=== PATIENT | female | born 1940 | race African-American/Black ===

== ENCOUNTER 2020-01-25 05:00 | Inpatient (IN) | payer MEDICARE ==
[~2020-01-25] VITALS: Ht 172.7 cm; Wt 82.1 kg
[2020-01-25] MEDS ORDERED: [UNRECOGNIZED DRUG - OTHER] ORAL (05:22)
[2020-01-25] MEDS ORDERED: Solu-MEDROL 125mg Inj IVP ONE (05:30)
--- NOTE | 2020-01-25 05:34 | Emergency Room Report ---
History of Present Illness General Chief Complaint: Dyspnea/Respdistress Present Illness HPI 79-year-old female with history of COPD here with shortness of breath. The patient says that she has been experiencing worsening shortness of breath over the past week. She says that she has been using her albuterol inhaler with only mild relief over the past several days. 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 When paramedics arrived the patient was tripoding on the ground and had an oxygen saturation of 90% on room air. She was put on a 4 L nonrebreather mask and states she immediately felt better. Denies headaches, vision changes, fevers, chills, chest pain, palpitations, cough, back pain, abdominal pain, nausea, vomiting, diarrhea, dysuria. Allergies: Coded Allergies: No Known Allergies (Unverified , 01/25/20) COVID-19 Screening Contact w/high risk pt: No Experienced COVID-19 symptoms?: Yes COVID-19 Testing performed SUPERVISOR STATEMENT CLERKS: No Review of Systems All Other Systems: negative except mentioned in HPI Physical Exam Vital Signs Date Time Temp Pulse Resp B/P (MAP) Pulse Ox O2 Delivery O2 Flow Rate FiO2 01/25/20 05:01 97.9 105 20 183/98 (126) 99 Non-Rebreather 15.0 Sp02 EP Interpretation: reviewed, normal General Appearance: no apparent distress, alert, GCS 15, non-toxic Head: normocephalic, atraumatic Eyes: bilateral eye normal inspection, bilateral eye PERRL ENT: hearing grossly normal, normal pharynx, no angioedema, normal voice Neck: full range of motion, supple/symm/no masses Respiratory: chest non-tender, speaking full sentences, other - Mildly increased respiratory effort but normal respiratory rate. Mild expiratory wheezes in all lung marte bilaterally Cardiovascular #1: regular rate, rhythm, no edema Cardiovascular #2: 2+ carotid (R), 2+ carotid (L), 2+ radial (R), 2+ radial (L) , 2+ dorsalis pedis (R), 2+ dorsalis pedis (L) Gastrointestinal: normal bowel sounds, non tender, soft, non-distended, no guarding, no rebound Rectal: deferred Genitourinary: normal inspection, no CVA tenderness Musculoskeletal: back normal, normal range of motion, calf tenderness, gait/ station normal, non-tender Neurologic: alert, motor strength/tone normal, oriented x3, sensory intact, responsive, speech normal Psychiatric: judgement/insight normal, memory normal, mood/affect normal, no suicidal/homicidal ideation Lymphatic: no adenopathy Medical Decision Making Diagnostic Impression: Primary Impression: Dyspnea Additional Impressions: Respiratory distress COPD exacerbation CAP (community acquired pneumonia) ER Course Laboratory Tests Test 01/25/20 05:15 White Blood Count 12.5 K/UL (4.8-10.8) H Red Blood Count 5.09 M/UL (4.20-5.40) Hemoglobin 16.0 G/DL (12.0-16.0) Hematocrit 50.3 % (37.0-47.0) H Mean Corpuscular Volume 99 FL (80-99) Mean Corpuscular Hemoglobin 31.5 PG (27.0-31.0) H Mean Corpuscular Hemoglobin Concent 31.9 G/DL (32.0-36.0) L Red Cell Distribution Width 11.6 % (11.6-14.8) Platelet Count 180 K/UL (150-450) Mean Platelet Volume 7.8 FL (6.5-10.1) Neutrophils (%) (Auto) 78.5 % (45.0-75.0) H Lymphocytes (%) (Auto) 13.1 % (20.0-45.0) L Monocytes (%) (Auto) 6.7 % (1.0-10.0) Eosinophils (%) (Auto) 0.6 % (0.0-3.0) Basophils (%) (Auto) 1.0 % (0.0-2.0) Sodium Level 139 MMOL/L (136-145) Potassium Level 3.9 MMOL/L (3.5-5.1) Chloride Level 99 MMOL/L (98-107) Carbon Dioxide Level 37 MMOL/L (21-32) H Anion Gap 3 mmol/L (5-15) L Blood Urea Nitrogen 10 mg/dL (7-18) Creatinine 0.7 MG/DL (0.55-1.30) Estimated Glomerular Filtration Rate > 60 mL/min (>60) Glucose Level 159 MG/DL (74-106) H Calcium Level 9.4 MG/DL (8.5-10.1) Total Bilirubin 0.4 MG/DL (0.2-1.0) Aspartate Amino Transferase (AST) 27 U/L (15-37) Alanine Aminotransferase (ALT) 32 U/L (12-78) Alkaline Phosphatase 70 U/L (46-116) Troponin I 0.000 ng/mL (0.000-0.056) Total Protein 8.4 G/DL (6.4-8.2) H Albumin 4.2 G/DL (3.4-5.0) Globulin 4.2 g/dL Albumin/Globulin Ratio 1.0 (1.0-2.7) Microbiology Date/Time Source Procedure Growth Status 01/25/20 05:15 Nasopharynx SARS-CoV-2 RdRp Gene Assay - Final Complete EKG: Rate 101 bpm. Normal sinus rhythm. Normal axis. No ectopy. No ST or T wave abnormalities Chest x-ray: Ill-defined right lower lung patchy airspace opacity may represent infection or asymmetric edema 79-year-old female here with shortness of breath. Patient has a longstanding history of COPD and had expiratory wheezes on examination and all of her lung marte. She was on a nonrebreather on arrival set at 4 L and she had normal oxygen saturation and otherwise normal vital signs. COVID negative. She was started on a DuoNeb treatment with good resolution of her wheezing and shortness of breath. Chest x-ray however showed evidence of possible lower lung pneumonia and patient had mildly elevated white blood cell count. She was treated with ceftriaxone and azithromycin in the emergency department for [facility] pneumonia as the patient has not recently been admitted to the hospital. Patient to be admitted to telemetry. Total critical care time: Approximately 30 minutes Due to a high probability of clinically significant, life threatening deterioration, the patient required the highest level of preparedness to intervene emergently and I personally spent this critical care time directly and personally managing the patient. This critical care time included obtaining a history, examining the patient, pulse oximetry, ordering and reviewing studies , ordering treatments, evaluating response to treatment and updating management plan as needed, frequent reassessment and discussion with other providers as well as arranging for ultimate disposition. This critical to care time was performed to assess and manage the high probability of life-threatening deterioration that could result in multiorgan failure. This critical care time is separate from the separately billable procedures and treating other patients. Last Vital Signs Date Time Temp Pulse Resp B/P (MAP) Pulse Ox O2 Delivery O2 Flow Rate FiO2 01/25/20 05:01 97.9 105 20 183/98 (126) 99 Non-Rebreather 15.0 Uriah Dodge M.D. Jan 25, 2020 05:34
[2020-01-25 05:39] LABS: ANION GAP 3 mmol/L (5-15); BLOOD UREA NITROGEN 10 mg/dL (7-18); CALCIUM 9.4 MG/DL (8.5-10.1); CARBON DIOXIDE 37 MMOL/L (21-32); CHLORIDE 99 MMOL/L (98-107); CREATININE 0.7 MG/DL (0.55-1.30); POTASSIUM 3.9 MMOL/L (3.5-5.1); SODIUM 139 MMOL/L (136-145)
[2020-01-25 05:40] LABS: EOSINOPHILS % (AUTO) 0.6 % (0.0-3.0); HEMATOCRIT 50.3 % (37.0-47.0); LYMPHOCYTES % (AUTO) 13.1 % (20.0-45.0); MEAN CORPUSCULAR VOLUME 99 FL (80-99); MONOCYTES % (AUTO) 6.7 % (1.0-10.0); NEUTROPHILS % (AUTO) 78.5 % (45.0-75.0); PLATELET COUNT 180 K/UL (150-450); RED BLOOD COUNT 5.09 M/UL (4.20-5.40); RED CELL DISTRIBUTION WIDTH 11.6 % (11.6-14.8); WHITE BLOOD COUNT 12.5 K/UL (4.8-10.8)
[2020-01-25 05:44] LABS: ALANINE AMINOTRANSFERASE 32 U/L (12-78); ALBUMIN 4.2 G/DL (3.4-5.0); ALKALINE PHOSPHATASE 70 U/L (46-116); ASPARTATE AMINO TRANSFERASE 27 U/L (15-37); BILIRUBIN,TOTAL 0.4 MG/DL (0.2-1.0)
[2020-01-25] MEDS ORDERED: cefTRIAXone 1 GM in NS 55 ML IVPB ONE (05:45)
[2020-01-25 05:46] VITALS: BP 187/85
[2020-01-25] MEDS: Albuterol/Ipratropium 3ml neb HHN SCH ×6 (05:56→19:11)
--- NOTE | 2020-01-25 05:56 | Diagnostic Imaging Report ---
ADDENDUM - Added by Jonathan Blount MD on 01/25/2020 6:31 AM (-07:00) Findings were discussed with Dr. Vega on 01/25/2020 at 9:30 AM EDT EXAM: XR Chest, 1 View CLINICAL HISTORY: SOB TECHNIQUE: Frontal view of the chest. COMPARISON: None FINDINGS: Ill-defined right lower lung patchy airspace opacities may represent infection or asymmetric edema. Triangular shaped opacity of the medial right lower thorax may represent right middle lobe atelectasis. The left lung is grossly clear. Possible trace pleural effusions are noted. There is no pneumothorax. The heart size is mildly prominent. IMPRESSION: Ill-defined right lower lung patchy airspace opacities may represent infection or asymmetric edema. Triangular shaped opacity of the right lower thorax may represent right middle lobe atelectasis. Further evaluation with chest CT is recommended to evaluate for the possibility of lobar atelectasis. <MYCVCSECTION> Communications: 01/25/20 06:31 Call Doctor Regarding Above results, called Dr. Vega on 01/24 06:31 (-07:00)
[2020-01-25] MEDS ORDERED: Azithromycin 250mg tab ORAL ONE (06:00)
[2020-01-25] MEDS ORDERED: Albuterol ud Inhalation HHN ONE (08:15)
[2020-01-25] MEDS ORDERED: Morphine Sulfate 2mg/ml Inj(IV/IM USE ONLY) IVP ONE (08:15)
[2020-01-25 10:08] LABS: APPEARANCE,URINE CLEAR; BILIRUBIN, URINE NEGATIVE (NEGATIVE); COLOR,URINE PALE YELLOW; GLUCOSE, URINE (UA) NEGATIVE (NEGATIVE); KETONES,URINE 2+ (NEGATIVE); LEUKOCYTE ESTERASE ,URINE NEGATIVE (NEGATIVE); NITRITE,URINE NEGATIVE (NEGATIVE); PH,URINE 6.5 (4.5-8.0); PROTEIN,URINE 2+ (NEGATIVE); UROBILINOGEN,URINE NORMAL MG/DL (0.0-1.0)
--- NOTE | 2020-01-25 10:30 | History and Physical Report ---
DATE OF ADMISSION: 01/25/2020 TIME SEEN: Approximate time is 8 a.m. CONSULTANTS: 1. Kadeem Corrigan MD. 2. Armida Zhang MD. CHIEF COMPLAINT: Shortness of breath, COPD exacerbation, right lower lobe pneumonia. BRIEF HISTORY: The patient is a 79-year-old female, who lives at home with 5 days of increasing shortness breath, came into [place], diagnosed with COPD exacerbation and right lower lobe pneumonia. In the ER currently on O2 NC, slight short of breath, awaiting admission. PAST MEDICAL HISTORY: COPD, diabetes. PAST SURGICAL HISTORY: Cystocele, hysterectomy. MEDICATIONS: Include azithromycin, ceftriaxone, albuterol, methylprednisolone. ALLERGIES: Penicillin. SOCIAL HISTORY: No smoke. Occasional alcohol. No intravenous drug abuse. FAMILY HISTORY: Noncontributory. PHYSICAL EXAMINATION: GENERAL: Calm in bed, slight short of breath, on O2 nasal cannula, oriented x3, no acute distress. VITAL SIGNS: Temperature 97, pulse 98, respirations 20, blood pressure 187/85. CARDIOVASCULAR: No murmur. LUNGS: Poor exchange. ABDOMEN: Bowel sounds distant. EXTREMITIES: No cyanosis or edema. NEUROLOGIC: The patient moves all extremities, slightly weak. LABORATORY AND DIAGNOSTIC DATA: Labs at this time show white count 12, otherwise CBC is normal. BMP shows glucose 159. Troponin 0.00, otherwise normal. ASSESSMENT: 1. Shortness of breath. 2. COPD exacerbation. 3. Diabetes. 4. Hypertension. 5. COPD. PLAN: 1. O2, pulmonary treatment. 2. Antibiotics per infectious diseases. 3. Blood pressure, blood sugar, and pain control . 4. Dietary evaluation. 5. CBC and BMP in the morning. 6. Resume home medications. 7. We will add Dr. Donahue, cardiac evaluation. 8. Continue to follow the patient. Jean Johnson D.O. DR: Kaleb JOB#: [id number] CC:
[2020-01-25 11:00] VITALS: BP 134/61
[2020-01-25] MEDS: Solu-MEDROL 40mg Inj IVP SCH ×3 (12:11→23:42)
--- NOTE | 2020-01-25 15:46 | Cardiac Electrophysiology PN ---
Subjective Subjective [id number] Objective Last 24 Hour Vital Signs Date Time Temp Pulse Resp B/P (MAP) Pulse Ox O2 Delivery O2 Flow Rate FiO2 01/25/20 12:47 97.2 96 18 134/61 100 Nasal Cannula 3.0 36 01/25/20 12:00 93 01/25/20 11:07 Nasal Cannula 2.0 01/25/20 11:00 96.3 96 18 134/61 (85) 100 01/25/20 10:52 98 01/25/20 08:41 101 17 97 Nasal Cannula 4.0 36 98 20 95 01/25/20 06:07 98 17 100 Nasal Cannula 4.0 36 101 20 100 01/25/20 06:03 98 22 100 Nasal Cannula 4.0 36 100 23 100 01/25/20 05:57 95 23 100 Nasal Cannula 4.0 36 96 25 98 01/25/20 05:46 105 20 Nasal Cannula 2.0 01/25/20 05:46 97.9 105 26 187/85 100 Nasal Cannula 2.0 01/25/20 05:01 97.9 105 20 183/98 (126) 99 Non-Rebreather 15.0 Laboratory Tests Test 01/25/20 05:15 01/25/20 08:34 White Blood Count 12.5 K/UL (4.8-10.8) H Red Blood Count 5.09 M/UL (4.20-5.40) Hemoglobin 16.0 G/DL (12.0-16.0) Hematocrit 50.3 % (37.0-47.0) H Mean Corpuscular Volume 99 FL (80-99) Mean Corpuscular Hemoglobin 31.5 PG (27.0-31.0) H Mean Corpuscular Hemoglobin Concent 31.9 G/DL (32.0-36.0) L Red Cell Distribution Width 11.6 % (11.6-14.8) Platelet Count 180 K/UL (150-450) Mean Platelet Volume 7.8 FL (6.5-10.1) Neutrophils (%) (Auto) 78.5 % (45.0-75.0) H Lymphocytes (%) (Auto) 13.1 % (20.0-45.0) L Monocytes (%) (Auto) 6.7 % (1.0-10.0) Eosinophils (%) (Auto) 0.6 % (0.0-3.0) Basophils (%) (Auto) 1.0 % (0.0-2.0) Sodium Level 139 MMOL/L (136-145) Potassium Level 3.9 MMOL/L (3.5-5.1) Chloride Level 99 MMOL/L (98-107) Carbon Dioxide Level 37 MMOL/L (21-32) H Anion Gap 3 mmol/L (5-15) L Blood Urea Nitrogen 10 mg/dL (7-18) Creatinine 0.7 MG/DL (0.55-1.30) Estimat Glomerular Filtration Rate > 60 mL/min (>60) Glucose Level 159 MG/DL (74-106) H Calcium Level 9.4 MG/DL (8.5-10.1) Total Bilirubin 0.4 MG/DL (0.2-1.0) Aspartate Amino Transf (AST/SGOT) 27 U/L (15-37) Alanine Aminotransferase (ALT/SGPT) 32 U/L (12-78) Alkaline Phosphatase 70 U/L (46-116) Troponin I 0.000 ng/mL (0.000-0.056) Total Protein 8.4 G/DL (6.4-8.2) H Albumin 4.2 G/DL (3.4-5.0) Globulin 4.2 g/dL Albumin/Globulin Ratio 1.0 (1.0-2.7) Urine Color Pale yellow Urine Appearance Clear Urine pH 6.5 (4.5-8.0) Urine Specific [place] 1.010 (1.005-1.035) Urine Protein 2+ (NEGATIVE) H Urine Glucose (UA) Negative (NEGATIVE) Urine Ketones 2+ (NEGATIVE) H Urine Blood 1+ (NEGATIVE) H Urine Nitrite Negative (NEGATIVE) Urine Bilirubin Negative (NEGATIVE) Urine Urobilinogen Normal MG/DL (0.0-1.0) Urine Leukocyte Esterase Negative (NEGATIVE) Urine RBC 0-2 /HPF (0 - 2) Urine WBC 0-2 /HPF (0 - 2) Urine Squamous Epithelial Cells Few /LPF (NONE/OCC) Urine Bacteria Occasional /HPF (NONE) Microbiology Date/Time Source Procedure Growth Status 01/25/20 05:15 Nasopharynx SARS-CoV-2 RdRp Gene Assay - Final Complete Jin Donahue MD Jan 25, 2020 15:46
[2020-01-25 16:00] VITALS: BP 159/65
--- NOTE | 2020-01-25 18:14 | Consultation ---
DATE OF CONSULTATION: 01/25/2020 PULMONARY CONSULTATION CONSULTING PHYSICIAN: Kadeem Corrigan MD. HISTORY OF PRESENT ILLNESS: This is a 79-year-old obese female who is admitted to the hospital with exacerbation of COPD. Patient reports a long-standing history of asthma/COPD. She states that she has takes Advair and Spiriva at home. She is also prediabetic. She also takes Xanax for anxiety. She was seen and evaluated in the emergency room and has subsequently been started on steroids and antibiotics. I have reviewed her chest x-ray, which shows right lower lobe pneumonia. PAST MEDICAL HISTORY: COPD, anxiety, prediabetes. HOME MEDICATIONS: Advair, Spiriva, and Xanax. ALLERGIES: None reported. REVIEW OF SYSTEMS: Denies any headaches, hematemesis, melena, hematochezia, night sweats, or weight loss. PHYSICAL EXAMINATION: GENERAL: Reveals an obese female. HEENT: Unremarkable. LUNGS: Clear breath sounds. ABDOMEN: Soft. EXTREMITIES: There is no edema. NEUROLOGIC: Nonfocal. VITAL SIGNS: Blood pressure is 90/60, heart rate 84, respirations 18, she is afebrile. LABORATORY DATA: Lab testing shows white count 12,000, otherwise normal CBC and BMP. Troponin is negative. Urinalysis negative. COVID-19 test rapid gene assay is negative. IMPRESSION: 1. Right lung pneumonia. 2. Exacerbation of COPD. 3. Obesity. 4. Anxiety. 5. Prediabetes. DISCUSSION: Admit to the hospital. Continue home medications. We will add DuoNeb, steroids, and antibiotics. We will add Xanax. Follow carefully. Kadeem Corrigan M.D. DR: GURDEEP JOB#: [id number] CC:
[2020-01-25] MEDS: ALPRAZolam 0.5mg tab ORAL PRN (18:17)
[2020-01-25 20:00] VITALS: BP 153/72
--- NOTE | 2020-01-25 20:15 | Consultation ---
DATE OF CONSULTATION: 01/25/2020 INFECTIOUS DISEASE CONSULTATION This consult is for coverage of Dr. Zhang. CONSULTING PHYSICIAN: Jah Smith MD. PRIMARY ATTENDING: Jean Johnson DO. REASON FOR CONSULT: Pneumonia, COPD exacerbation. HISTORY OF PRESENT ILLNESS: This is a 79-year-old female admitted this morning from home because of shortness of breath. She has been experiencing shortness of breath for the past week. She has albuterol inhaler at home, does not work so much. She went earlier to bathroom early in the morning and went to bathroom there was some new repair there some new sealant on the floor and she smelled the fumes and got very short of breath. When paramedics came, the oxygen saturation was low. PAST MEDICAL HISTORY: Significant for COPD, asthma. Getting oxygen at home. ALLERGIES: Allergic to penicillin. MEDICATIONS: Getting Zithromax, ceftriaxone, heparin, famotidine, methylprednisone, albuterol ipratropium inhaler. SOCIAL HISTORY: Single, lives alone. She is an ex-smoker, quit smoking many years ago. Has 8 children, 4 adopted and 4 natural born children. REVIEW OF SYSTEMS: No fever. No chills. Has shortness of breath. No significant coughing. Has some wheezing. No nausea. No vomiting. No dysuria. Has edema of legs that was present before. PHYSICAL EXAMINATION: VITAL SIGNS: Temperature 96.2, pulse 96, blood pressure 134/61. GENERAL APPEARANCE: No acute distress. HEAD AND NECK: [place] conjunctivae. HEART: Normal rate. LUNGS: Getting oxygen by nasal cannula. Has some expiratory wheezing. Decreased expansion and sounds. ABDOMEN: Soft, nontender. EXTREMITIES: Has edema of lower extremities. NEUROLOGIC: She is awake, alert, oriented x3. LABORATORY AND DIAGNOSTIC DATA: COVID test was negative. WBC 12.5, hemoglobin 16, hematocrit 50.3, platelets is 180. Sodium 139, potassium 3.9, chloride 99, bicarb 37, BUN 10, creatinine 0.7, glucose 159. UA was negative for leukocyte esterase and nitrite. Chest x-ray showed right lower lobe patchy airspace, may be infection or asymmetric edema. IMPRESSION: Sepsis with tachycardia and leukocytosis. Has COPD exacerbation. May have early pneumonia. Has hyperglycemia, prediabetic. RECOMMENDATION: We will continue with ceftriaxone and Zithromax. We will follow up chest x-ray in a few days. At the end of my exam, I thank Dr. Jean Johnson, for involving me in the care of this patient. Jah Smith M.D. DR: YONI JOB#: [id number] CC: JEET
[2020-01-25] MEDS: Heparin 5000 units/ml inj SUBQ SCH (20:18)
--- NOTE | 2020-01-25 22:30 | Consultation ---
DATE OF CONSULTATION: 01/25/2020 CARDIOLOGY CONSULTATION CONSULTING PHYSICIAN: Jin Donahue MD. REFERRING PHYSICIAN: Jean Johnson DO. REASON FOR CONSULTATION: Shortness of breath. HISTORY OF PRESENT ILLNESS: Patient is a 79-year-old lady with history of hypertension and COPD who is on home oxygen as well as history of irregular heartbeat for which she has been admitted to [facility] in the past with tachycardia. Patient stated that she has some electrical problem with her heart, but does not have a regular head of integrated media. Patient came to the emergency room with increasing shortness of breath last week despite using her albuterol inhaler. Patient into the bathroom construction coordinator hours and she said that the applications systems analyst has put cement in the floor and felt fumes and she got very short of breath. The patient stated that after she left the bathroom called paramedics, was tripoding on the ground, and had oxygen saturation 90% on room air. Patient was put on 4 liter nonrebreather mask and brought to the emergency room for further evaluation. REVIEW OF SYSTEMS: Negative other than what was mentioned in the history of present illness. PAST MEDICAL HISTORY: As mentioned above. FAMILY HISTORY: Noncontributory. SOCIAL HISTORY: She lives at home. Does not smoke or drink alcohol. It is of note in the emergency room blood pressure was 182/98. FAMILY HISTORY: Noncontributory. SOCIAL HISTORY: Does not smoke or drink alcohol. Lives at home. PHYSICAL EXAMINATION: VITAL SIGNS: Show blood pressure of 134/61, pulse is 95, respirations 18, temperature 97.2. HEAD AND NECK: Shows positive JVD. LUNGS: Decreased breath sounds. CARDIOVASCULAR: Shows regular S1 and S2 with no gallop. ABDOMEN: Soft. EXTREMITIES: 1+ pitting edema. LABORATORY DATA: Labs show white count 12.5 hemoglobin of 16, hematocrit 50, and platelet count of 180. Sodium 139, potassium 3.9, BUN of 10, creatinine 0.7, glucose of 159. Troponin is negative. ASSESSMENT AND PLAN: 1. Hypertension. Blood pressure was in the 180s, currently improved. Add p.r.n. clonidine to her medical regimen and add Norvasc 5 mg daily. 2. Lower extremity edema. Add low-dose Lasix to her medical regimen. We will get an echocardiogram for further evaluation to make patient has not developed right heart failure. 3. Hypoxemia and COPD. Rule out congestive heart failure. Again, echocardiogram is pending. We will completely rule out PR protocol. 4. History of tachycardia and irregular heartbeat. We will watch patient on telemetry. Currently, in sinus rhythm. We will try to get the records from [facility] when she was at the last time in 2013. Thank you very much, Dr. Johnson, for allowing me to participate in the care of this patient. Please do not hesitate to contact me for any questions regarding my evaluation. Jin Donahue M.D. DR: ARACELI JOB#: [id number] CC:
[2020-01-26] VITALS: BP 136/57
[2020-01-26] MEDS: Albuterol/Ipratropium 3ml neb HHN SCH ×4 (00:07→19:00)
[2020-01-26 04:00] VITALS: BP 154/76
[2020-01-26] MEDS: Solu-MEDROL 40mg Inj IVP SCH ×4 (05:51→23:38)
[2020-01-26 06:47] VITALS: BP 171/84
[2020-01-26 06:47] LABS: HEMATOCRIT 48.7 % (37.0-47.0); HEMOGLOBIN 15.5 G/DL (12.0-16.0); MEAN CORPUSCULAR VOLUME 98 FL (80-99); PLATELET COUNT 164 K/UL (150-450); RED BLOOD COUNT 4.96 M/UL (4.20-5.40); RED CELL DISTRIBUTION WIDTH 11.5 % (11.6-14.8); WHITE BLOOD COUNT 11.3 K/UL (4.8-10.8)
[2020-01-26 07:12] LABS: ANION GAP 1 mmol/L (5-15); BLOOD UREA NITROGEN 11 mg/dL (7-18); CALCIUM 9.2 MG/DL (8.5-10.1); CARBON DIOXIDE 37 MMOL/L (21-32); CHLORIDE 103 MMOL/L (98-107); CREATININE 0.7 MG/DL (0.55-1.30); POTASSIUM 4.4 MMOL/L (3.5-5.1); SODIUM 141 MMOL/L (136-145)
--- NOTE | 2020-01-26 08:54 | General Progress Note ---
Assessment/Plan Problem List: (1) HTN (hypertension) ICD Codes: I10 - Essential (primary) hypertension SNOMED: 93254088 (2) Diabetes ICD Codes: E11.9 - Type 2 diabetes mellitus without complications SNOMED: 91048942 (3) Dyspnea ICD Codes: R06.00 - Dyspnea, unspecified SNOMED: 148872820 (4) COPD exacerbation ICD Codes: J44.1 - Chronic obstructive pulmonary disease with (acute) exacerbation SNOMED: 668560373 (5) CAP (community acquired pneumonia) ICD Codes: J18.9 - Pneumonia, unspecified organism SNOMED: 286879849 (6) Respiratory distress ICD Codes: R06.03 - Acute respiratory distress SNOMED: 462147572 Status: unchanged Assessment/Plan: pt diet o2 pulm tx abx cbc bmp am Subjective Constitutional: Reports: weakness Respiratory: Reports: shortness of breath Allergies: Coded Allergies: PENICILLINS (Verified Allergy, Severe, 01/25/20) All Systems: reviewed and negative except above Subjective o2nc calm Objective Last 24 Hour Vital Signs Date Time Temp Pulse Resp B/P (MAP) Pulse Ox O2 Delivery O2 Flow Rate FiO2 01/26/20 07:21 93 20 98 Nasal Cannula 3.0 32 89 20 93 01/26/20 06:47 171/84 (113) 01/26/20 04:00 98.5 85 23 154/76 (102) 93 01/26/20 04:00 89 01/26/20 00:00 98.6 87 21 136/57 (83) 91 01/26/20 00:00 80 01/25/20 21:00 Nasal Cannula 2.0 01/25/20 20:00 97 01/25/20 20:00 97.7 99 20 153/72 (99) 92 01/25/20 19:21 98 20 97 Nasal Cannula 3.0 32 100 20 94 01/25/20 16:00 98 01/25/20 16:00 97.5 100 18 159/65 (96) 92 01/25/20 12:47 97.2 96 18 134/61 100 Nasal Cannula 3.0 36 01/25/20 12:00 93 01/25/20 11:07 Nasal Cannula 2.0 01/25/20 11:00 96.3 96 18 134/61 (85) 100 8/30/20 10:52 98 Intake and Output 01/25/20 01/26/20 19:00 07:00 Intake Total 440 ml 900 ml Output Total 600 ml 780 ml Balance -160 ml 120 ml Intake Oral 390 ml 400 ml IV Total 50 ml 500 ml Output Urine Total 600 ml 780 ml # Voids 2 Laboratory Tests 01/26/20 05:50: White Blood Count 11.3H, Red Blood Count 4.96, Hemoglobin 15.5, Hematocrit 48.7H , Mean Corpuscular Volume 98, Mean Corpuscular Hemoglobin 31.2H, Mean Corpuscular Hemoglobin Concent 31.8L, Red Cell Distribution Width 11.5L, Platelet Count 164, Mean Platelet Volume 7.7, Neutrophils (%) (Auto) , Lymphocytes (%) (Auto) , Monocytes (%) (Auto) , Eosinophils (%) (Auto) , Basophils (%) (Auto) , Neutrophils % (Manual) [Pending], Lymphocytes % (Manual) [Pending], Platelet Estimate [Pending], Platelet Morphology [Pending], Sodium Level 141, Potassium Level 4.4, Chloride Level 103, Carbon Dioxide Level 37H, Anion Gap 1L, Blood Urea Nitrogen 11, Creatinine 0.7, Estimat Glomerular Filtration Rate > 60, Glucose Level 198H, Calcium Level 9.2, Troponin I 0.015, Pro-B-Type Natriuretic Peptide 177H, Thyroid Stimulating Hormone (TSH) 0.339L, Free Thyroxine 1.37 Height (Feet): 5 Height (Inches): 8.00 Weight (Pounds): 176 General Appearance: lethargic EENT: normal ENT inspection Neck: normal alignment Cardiovascular: normal peripheral pulses, normal rate, regular rhythm Respiratory/Chest: chest wall non-tender, lungs clear, normal breath sounds Abdomen: normal bowel sounds, non tender, soft Extremities: normal inspection Edema: no edema noted Arm (L), no edema noted Arm (R), no edema noted Leg (L), no edema noted Leg (R), no edema noted Pedal (L), no edema noted Pedal (R), no edema noted Generalized Neurologic: responsive, motor weakness Skin: normal pigmentation, warm/dry Jean Johnson DO Jan 26, 2020 08:54
[2020-01-26] MEDS ORDERED: cefTRIAXone 1 GM in D5W 55 ML IV SCH (09:00)
[2020-01-26] MEDS ORDERED: Azithromycin 500 MG in D5W 275 ML IV SCH (09:00)
[2020-01-26] MEDS: Furosemide 40mg tab ORAL SCH (09:01)
[2020-01-26] MEDS: Heparin 5000 units/ml inj SUBQ SCH ×2 (09:02→21:02)
[2020-01-26] MEDS: ALPRAZolam 0.5mg tab ORAL PRN ×3 (09:18→23:51)
--- NOTE | 2020-01-26 09:35 | Pulmonology Progress Note ---
Subjective Interval Events: Getting ECHO; feeling better Constitutional: Reports: no symptoms HEENT: Repors: no symptoms Respiratory: Reports: no symptoms Cardiovascular: Reports: no symptoms Gastrointestinal/Abdominal: Reports: no symptoms Genitourinary: Reports: no symptoms Allergies: Coded Allergies: PENICILLINS (Verified Allergy, Severe, 01/25/20) All Systems: reviewed and negative except above Objective Last 24 Hour Vital Signs Date Time Temp Pulse Resp B/P (MAP) Pulse Ox O2 Delivery O2 Flow Rate FiO2 01/26/20 09:01 104 171/84 01/26/20 09:00 106 173/85 01/26/20 08:00 97.5 62 18 94 01/26/20 07:21 93 20 98 Nasal Cannula 3.0 32 89 20 93 01/26/20 06:47 171/84 (113) 01/26/20 04:00 98.5 85 23 154/76 (102) 93 01/26/20 04:00 89 01/26/20 00:00 98.6 87 21 136/57 (83) 91 01/26/20 00:00 80 01/25/20 21:00 Nasal Cannula 2.0 01/25/20 20:00 97 01/25/20 20:00 97.7 99 20 153/72 (99) 92 01/25/20 19:21 98 20 97 Nasal Cannula 3.0 32 100 20 94 01/25/20 16:00 98 01/25/20 16:00 97.5 100 18 159/65 (96) 92 01/25/20 12:47 97.2 96 18 134/61 100 Nasal Cannula 3.0 36 01/25/20 12:00 93 01/25/20 11:07 Nasal Cannula 2.0 01/25/20 11:00 96.3 96 18 134/61 (85) 100 01/25/20 10:52 98 Intake and Output 01/25/20 01/26/20 19:00 07:00 Intake Total 440 ml 900 ml Output Total 600 ml 780 ml Balance -160 ml 120 ml Intake Oral 390 ml 400 ml IV Total 50 ml 500 ml Output Urine Total 600 ml 780 ml # Voids 2 General Appearance: no acute distress HEENT: normocephalic Respiratory: chest wall non-tender, lungs clear Abdomen: normal bowel sounds Microbiology Date/Time Source Procedure Growth Status 01/25/20 05:15 Nasopharynx SARS-CoV-2 RdRp Gene Assay - Final Complete Laboratory Tests 01/26/20 05:50: White Blood Count 11.3H, Red Blood Count 4.96, Hemoglobin 15.5, Hematocrit 48.7H , Mean Corpuscular Volume 98, Mean Corpuscular Hemoglobin 31.2H, Mean Corpuscular Hemoglobin Concent 31.8L, Red Cell Distribution Width 11.5L, Platelet Count 164, Mean Platelet Volume 7.7, Neutrophils (%) (Auto) , Lymphocytes (%) (Auto) , Monocytes (%) (Auto) , Eosinophils (%) (Auto) , Basophils (%) (Auto) , Neutrophils % (Manual) [Pending], Lymphocytes % (Manual) [Pending], Platelet Estimate [Pending], Platelet Morphology [Pending], Sodium Level 141, Potassium Level 4.4, Chloride Level 103, Carbon Dioxide Level 37H, Anion Gap 1L, Blood Urea Nitrogen 11, Creatinine 0.7, Estimat Glomerular Filtration Rate > 60, Glucose Level 198H, Calcium Level 9.2, Troponin I 0.015, Pro-B-Type Natriuretic Peptide 177H, Thyroid Stimulating Hormone (TSH) 0.339L, Free Thyroxine 1.37 Current Medications Medications (Trade) Dose Ordered Sig/Naye Route PRN Reason Start Time Stop Time Status Last Admin Dose Admin Acetaminophen (Tylenol) 650 mg Q4H PRN ORAL Mild Pain (Pain Scale 1-3) 01/25/20 10:48 02/24/20 10:47 Albuterol/ Ipratropium (Albuterol/ Ipratropium) 3 ml EVERY 6 HOURS HHN 01/25/20 12:00 01/30/20 11:59 01/26/20 06:00 Alprazolam (Xanax) 0.5 mg Q6H PRN ORAL For Anxiety 01/25/20 10:49 02/01/20 10:48 01/26/20 09:18 Amlodipine Besylate (Norvasc) 5 mg DAILY ORAL 01/26/20 09:00 02/25/20 08:59 01/26/20 09:00 Azithromycin 500 mg/Dextrose 275 ml @ 275 mls/hr Q24H IV 01/26/20 09:00 01/31/20 08:59 Ceftriaxone Sodium 1 gm/ Dextrose 55 ml @ 110 mls/hr Q24H IV 01/26/20 09:00 02/02/20 08:59 01/26/20 09:01 Famotidine (Pepcid) 20 mg BID ORAL 01/25/20 18:00 04/24/20 17:59 01/26/20 09:00 Furosemide (Lasix) 40 mg DAILY ORAL 01/26/20 09:00 02/25/20 08:59 01/26/20 09:01 Heparin Sodium (Porcine) (Heparin 5000 units/ml) 5,000 units EVERY 12 HOURS SUBQ 01/25/20 21:00 03/10/20 20:59 01/26/20 09:02 Methylprednisolone Sodium Succinate (Solu-MEDROL) 40 mg EVERY 6 HOURS IVP 01/25/20 12:00 04/24/20 11:59 01/26/20 05:51 Sodium Chloride 1,000 ml @ 50 mls/hr Q20H IVLG 01/25/20 12:30 02/24/20 12:29 01/26/20 06:12 Verapamil HCl (Calan SR) 120 mg DAILY ORAL 01/26/20 09:00 02/25/20 08:59 01/26/20 09:01 Assessment/Plan Assessment/Plan IMPRESSION: 1. Right lung pneumonia. 2. Exacerbation of COPD. 3. Obesity. 4. Anxiety. 5. Prediabetes. DISCUSSION: Continue home medications. Continue DuoNeb, steroids, and antibiotics. Also on Xanax. I will follow carefully. Carrie Murray Omar Syed MD Jan 26, 2020 09:35
--- NOTE | 2020-01-26 10:50 | Infectious Diseases Prog Note ---
Assessment/Plan Assessment/Plan antibiotics : ceftriaxone, azithromycin A 1. pneumonia COVID 19 negative 2. COPD 3. asthma P 1. continue ceftriaxone, azithromycin 2. sputum culture 3. will follow up culture Subjective Constitutional: Reports: fever; Denies: chills Respiratory: Reports: shortness of breath; Denies: dry cough Gastrointestinal/Abdominal: Denies: nausea, vomiting, diarrhea Musculoskeletal: Reports: pain Allergies: Coded Allergies: PENICILLINS (Verified Allergy, Severe, 01/25/20) Objective Last 24 Hour Vital Signs Date Time Temp Pulse Resp B/P (MAP) Pulse Ox O2 Delivery O2 Flow Rate FiO2 01/26/20 09:01 104 171/84 01/26/20 09:00 106 173/85 01/26/20 09:00 Nasal Cannula 2.0 01/26/20 08:00 97 01/26/20 08:00 97.5 62 18 94 01/26/20 07:21 93 20 98 Nasal Cannula 3.0 32 89 20 93 01/26/20 06:47 171/84 (113) 01/26/20 04:00 98.5 85 23 154/76 (102) 93 01/26/20 04:00 89 01/26/20 00:00 98.6 87 21 136/57 (83) 91 01/26/20 00:00 80 01/25/20 21:00 Nasal Cannula 2.0 01/25/20 20:00 97 01/25/20 20:00 97.7 99 20 153/72 (99) 92 01/25/20 19:21 98 20 97 Nasal Cannula 3.0 32 100 20 94 01/25/20 16:00 98 01/25/20 16:00 97.5 100 18 159/65 (96) 92 01/25/20 12:47 97.2 96 18 134/61 100 Nasal Cannula 3.0 36 01/25/20 12:00 93 01/25/20 11:07 Nasal Cannula 2.0 01/25/20 11:00 96.3 96 18 134/61 (85) 100 01/25/20 10:52 98 Height (Feet): 5 Height (Inches): 8.00 Weight (Pounds): 176 Respiratory/Chest: lungs clear Cardiovascular: normal rate, regular rhythm, no gallop/murmur Abdomen: soft, non tender Extremities: no edema Microbiology Date/Time Source Procedure Growth Status 01/25/20 05:15 Nasopharynx SARS-CoV-2 RdRp Gene Assay - Final Complete Laboratory Tests Test 01/26/20 05:50 White Blood Count 11.3 K/UL (4.8-10.8) H Red Blood Count 4.96 M/UL (4.20-5.40) Hemoglobin 15.5 G/DL (12.0-16.0) Hematocrit 48.7 % (37.0-47.0) H Mean Corpuscular Volume 98 FL (80-99) Mean Corpuscular Hemoglobin 31.2 PG (27.0-31.0) H Mean Corpuscular Hemoglobin Concent 31.8 G/DL (32.0-36.0) L Red Cell Distribution Width 11.5 % (11.6-14.8) L Platelet Count 164 K/UL (150-450) Mean Platelet Volume 7.7 FL (6.5-10.1) Neutrophils (%) (Auto) % (45.0-75.0) Lymphocytes (%) (Auto) % (20.0-45.0) Monocytes (%) (Auto) % (1.0-10.0) Eosinophils (%) (Auto) % (0.0-3.0) Basophils (%) (Auto) % (0.0-2.0) Neutrophils % (Manual) Pending Lymphocytes % (Manual) Pending Platelet Estimate Pending Platelet Morphology Pending Sodium Level 141 MMOL/L (136-145) Potassium Level 4.4 MMOL/L (3.5-5.1) Chloride Level 103 MMOL/L (98-107) Carbon Dioxide Level 37 MMOL/L (21-32) H Anion Gap 1 mmol/L (5-15) L Blood Urea Nitrogen 11 mg/dL (7-18) Creatinine 0.7 MG/DL (0.55-1.30) Estimat Glomerular Filtration Rate > 60 mL/min (>60) Glucose Level 198 MG/DL (74-106) H Calcium Level 9.2 MG/DL (8.5-10.1) Troponin I 0.015 ng/mL (0.000-0.056) Pro-B-Type Natriuretic Peptide 177 pg/mL (0-125) H Thyroid Stimulating Hormone (TSH) 0.339 uiU/mL (0.358-3.740) Free Thyroxine 1.37 NG/DL (0.76-1.46) Current Medications Medications (Trade) Dose Ordered Sig/Naye Route PRN Reason Start Time Stop Time Status Last Admin Dose Admin Acetaminophen (Tylenol) 650 mg Q4H PRN ORAL Mild Pain (Pain Scale 1-3) 01/25/20 10:48 02/24/20 10:47 Albuterol/ Ipratropium (Albuterol/ Ipratropium) 3 ml EVERY 6 HOURS HHN 01/25/20 12:00 01/30/20 11:59 01/26/20 06:00 Alprazolam (Xanax) 0.5 mg Q6H PRN ORAL For Anxiety 01/25/20 10:49 02/01/20 10:48 01/26/20 09:18 Amlodipine Besylate (Norvasc) 5 mg DAILY ORAL 01/26/20 09:00 02/25/20 08:59 01/26/20 09:00 Azithromycin 500 mg/Dextrose 275 ml @ 275 mls/hr Q24H IV 01/26/20 09:00 01/31/20 08:59 01/26/20 10:15 Ceftriaxone Sodium 1 gm/ Dextrose 55 ml @ 110 mls/hr Q24H IV 01/26/20 09:00 02/02/20 08:59 01/26/20 09:01 Famotidine (Pepcid) 20 mg BID ORAL 01/25/20 18:00 04/24/20 17:59 01/26/20 09:00 Furosemide (Lasix) 40 mg DAILY ORAL 01/26/20 09:00 02/25/20 08:59 01/26/20 09:01 Heparin Sodium (Porcine) (Heparin 5000 units/ml) 5,000 units EVERY 12 HOURS SUBQ 01/25/20 21:00 03/10/20 20:59 01/26/20 09:02 Methylprednisolone Sodium Succinate (Solu-MEDROL) 40 mg EVERY 6 HOURS IVP 01/25/20 12:00 04/24/20 11:59 01/26/20 05:51 Sodium Chloride 1,000 ml @ 50 mls/hr Q20H IVLG 01/25/20 12:30 02/24/20 12:29 01/26/20 06:12 Verapamil HCl (Calan SR) 120 mg DAILY ORAL 01/26/20 09:00 02/25/20 08:59 01/26/20 09:01 Armida Zhang MD Jan 26, 2020 10:50
[2020-01-26 12:00] VITALS: BP 173/85
--- NOTE | 2020-01-26 13:29 | Cardiac Electrophysiology PN ---
Assessment/Plan Assessment/Plan 1. Hypertension. Blood pressure was in the 180s, currently improved. Added p.r.n. clonidine. DC Norvasc as is on Verapamil at home that was resumed. On Lasix 40 po daily 2. Lower extremity edema.On Lasix . EF 60% 3. Hypoxemia and COPD. Rule out congestive heart failure.EF 60%. Ruled out for MS 4. History of tachycardia and irregular heartbeat. We will watch patient on telemetry. Currently, in sinus rhythm. On Verapamil Subjective Subjective Still SOB got nebulizer treatment Objective Last 24 Hour Vital Signs Date Time Temp Pulse Resp B/P (MAP) Pulse Ox O2 Delivery O2 Flow Rate FiO2 01/26/20 12:49 94 20 99 Nasal Cannula 2.0 32 95 20 94 01/26/20 12:00 98.6 106 20 173/85 (114) 94 01/26/20 12:00 86 01/26/20 09:01 104 171/84 01/26/20 09:00 106 173/85 01/26/20 09:00 Nasal Cannula 2.0 01/26/20 08:00 97 01/26/20 08:00 97.5 62 18 94 01/26/20 07:21 93 20 98 Nasal Cannula 3.0 32 89 20 93 01/26/20 06:47 171/84 (113) 01/26/20 04:00 98.5 85 23 154/76 (102) 93 01/26/20 04:00 89 01/26/20 00:00 98.6 87 21 136/57 (83) 91 01/26/20 00:00 80 01/25/20 21:00 Nasal Cannula 2.0 01/25/20 20:00 97 01/25/20 20:00 97.7 99 20 153/72 (99) 92 01/25/20 19:21 98 20 97 Nasal Cannula 3.0 32 100 20 94 01/25/20 16:00 98 01/25/20 16:00 97.5 100 18 159/65 (96) 92 Intake and Output 01/25/20 01/26/20 19:00 07:00 Intake Total 440 ml 900 ml Output Total 600 ml 780 ml Balance -160 ml 120 ml Intake Oral 390 ml 400 ml IV Total 50 ml 500 ml Output Urine Total 600 ml 780 ml # Voids 2 Laboratory Tests Test 01/26/20 05:50 White Blood Count 11.3 K/UL (4.8-10.8) H Red Blood Count 4.96 M/UL (4.20-5.40) Hemoglobin 15.5 G/DL (12.0-16.0) Hematocrit 48.7 % (37.0-47.0) H Mean Corpuscular Volume 98 FL (80-99) Mean Corpuscular Hemoglobin 31.2 PG (27.0-31.0) H Mean Corpuscular Hemoglobin Concent 31.8 G/DL (32.0-36.0) L Red Cell Distribution Width 11.5 % (11.6-14.8) L Platelet Count 164 K/UL (150-450) Mean Platelet Volume 7.7 FL (6.5-10.1) Neutrophils (%) (Auto) % (45.0-75.0) Lymphocytes (%) (Auto) % (20.0-45.0) Monocytes (%) (Auto) % (1.0-10.0) Eosinophils (%) (Auto) % (0.0-3.0) Basophils (%) (Auto) % (0.0-2.0) Differential Total Cells Counted 100 Neutrophils % (Manual) 94 % (45-75) H Lymphocytes % (Manual) 3 % (20-45) L Monocytes % (Manual) 3 % (1-10) Eosinophils % (Manual) 0 % (0-3) Basophils % (Manual) 0 % (0-2) Band Neutrophils 0 % (0-8) Platelet Estimate Adequate Platelet Morphology Normal Red Blood Cell Morphology Normal Sodium Level 141 MMOL/L (136-145) Potassium Level 4.4 MMOL/L (3.5-5.1) Chloride Level 103 MMOL/L (98-107) Carbon Dioxide Level 37 MMOL/L (21-32) H Anion Gap 1 mmol/L (5-15) L Blood Urea Nitrogen 11 mg/dL (7-18) Creatinine 0.7 MG/DL (0.55-1.30) Estimat Glomerular Filtration Rate > 60 mL/min (>60) Glucose Level 198 MG/DL (74-106) H Calcium Level 9.2 MG/DL (8.5-10.1) Troponin I 0.015 ng/mL (0.000-0.056) Pro-B-Type Natriuretic Peptide 177 pg/mL (0-125) H Thyroid Stimulating Hormone (TSH) 0.339 uiU/mL (0.358-3.740) Free Thyroxine 1.37 NG/DL (0.76-1.46) Microbiology Date/Time Source Procedure Growth Status 01/25/20 05:00 Blood Peripheral Blood Culture - Preliminary Resulted 01/25/20 05:15 Nasopharynx SARS-CoV-2 RdRp Gene Assay - Final Complete Objective HEAD AND NECK: Shows positive JVD. LUNGS: Decreased breath sounds. CARDIOVASCULAR: Shows regular S1 and S2 with no gallop. ABDOMEN: Soft. EXTREMITIES: 1+ pitting edema. Jin Donahue MD Jan 26, 2020 13:29
[2020-01-26 16:00] VITALS: BP 168/78
[2020-01-26] MEDS ORDERED: Cefepime HCl 2 GM in D5W 55 ML IVPB SCH ×2 (17:00→21:00)
[2020-01-26 20:00] VITALS: BP 145/72
[2020-01-26] MEDS: Cefepime HCl 2 GM in D5W 55 ML IVPB SCH (21:00)
[2020-01-27] VITALS: BP 191/94
[2020-01-27] MEDS: Albuterol/Ipratropium 3ml neb HHN SCH ×4 (00:21→19:29)
[2020-01-27 04:00] VITALS: BP 159/80
[2020-01-27] MEDS: Solu-MEDROL 40mg Inj IVP SCH ×4 (05:06→23:40)
[2020-01-27] MEDS: ALPRAZolam 0.5mg tab ORAL PRN ×3 (06:24→20:18)
[2020-01-27 06:53] LABS: HEMATOCRIT 47.4 % (37.0-47.0); HEMOGLOBIN 15.3 G/DL (12.0-16.0); MEAN CORPUSCULAR VOLUME 97 FL (80-99); PLATELET COUNT 178 K/UL (150-450); RED CELL DISTRIBUTION WIDTH 11.5 % (11.6-14.8); WHITE BLOOD COUNT 10.5 K/UL (4.8-10.8)
[2020-01-27 07:06] LABS: ANION GAP 4 mmol/L (5-15); BLOOD UREA NITROGEN 15 mg/dL (7-18); CALCIUM 9.3 MG/DL (8.5-10.1); CARBON DIOXIDE 35 MMOL/L (21-32); CHLORIDE 103 MMOL/L (98-107); CREATININE 0.5 MG/DL (0.55-1.30); POTASSIUM 3.7 MMOL/L (3.5-5.1); SODIUM 142 MMOL/L (136-145)
[2020-01-27 08:00] VITALS: BP 168/86
[2020-01-27] MEDS: Heparin 5000 units/ml inj SUBQ SCH ×2 (08:39→20:34)
[2020-01-27] MEDS: Furosemide 40mg tab ORAL SCH (08:40)
--- NOTE | 2020-01-27 10:34 | Infectious Diseases Prog Note ---
"Assessment/Plan Assessment/Plan antibiotics : cefepime A 1. pneumonia COVID 19 negative 2. COPD 3. asthma 4. gram positive | gram negative sepsis P 1. cefepime started 2. start iv vancomycin 2. will follow up culture Subjective Constitutional: Denies: fever, chills Respiratory: Reports: shortness of breath - decreased, dry cough Gastrointestinal/Abdominal: Denies: nausea, vomiting, diarrhea Musculoskeletal: Denies: pain Allergies: Coded Allergies: PENICILLINS (Verified Allergy, Severe, 01/25/20) Objective Last 24 Hour Vital Signs Date Time Temp Pulse Resp B/P (MAP) Pulse Ox O2 Delivery O2 Flow Rate FiO2 01/27/20 09:26 167/86 01/27/20 08:41 129 168/86 01/27/20 07:52 92 Nasal Cannula 2.0 28 01/27/20 07:47 120 20 97 Nasal Cannula 2.0 32 122 20 91 01/27/20 04:00 79 01/27/20 04:00 98.6 91 23 159/80 (106) 93 01/27/20 00:21 118 21 95 Nasal Cannula 2.0 32 101 25 92 01/27/20 00:00 98.1 119 25 191/94 (126) 91 01/27/20 00:00 128 01/26/20 23:39 191/94 01/26/20 21:00 Nasal Cannula 2.0 01/26/20 20:00 101 01/26/20 20:00 97.9 113 24 145/72 (96) 96 01/26/20 19:00 114 20 97 Nasal Cannula 2.0 32 102 25 91 01/26/20 16:00 96.3 95 20 168/78 (108) 93 01/26/20 16:00 72 01/26/20 12:49 94 20 99 Nasal Cannula 2.0 32 95 20 94 01/26/20 12:00 98.6 106 20 173/85 (114) 94 01/26/20 12:00 86 Height (Feet): 5 Height (Inches): 8.00 Weight (Pounds): 178 Respiratory/Chest: lungs clear Cardiovascular: normal rate, regular rhythm, no gallop/murmur Abdomen: soft, non tender Extremities: other - + edema bilaterally Microbiology Date/Time Source Procedure Growth Status 01/25/20 05:15 Blood Peripheral Blood Culture - Preliminary Resulted 01/25/20 05:00 Blood Peripheral Blood Culture - Preliminary Gram Negative Bacillus 1 Resulted 01/25/20 05:15 Nasopharynx SARS-CoV-2 RdRp Gene Assay - Final Complete Laboratory Tests Test 01/27/20 05:12 White Blood Count 10.5 K/UL (4.8-10.8) Red Blood Count 4.90 M/UL (4.20-5.40) Hemoglobin 15.3 G/DL (12.0-16.0) Hematocrit 47.4 % (37.0-47.0) H Mean Corpuscular Volume 97 FL (80-99) Mean Corpuscular Hemoglobin 31.2 PG (27.0-31.0) H Mean Corpuscular Hemoglobin Concent 32.3 G/DL (32.0-36.0) Red Cell Distribution Width 11.5 % (11.6-14.8) L Platelet Count 178 K/UL (150-450) Mean Platelet Volume 8.0 FL (6.5-10.1) Neutrophils (%) (Auto) % (45.0-75.0) Lymphocytes (%) (Auto) % (20.0-45.0) Monocytes (%) (Auto) % (1.0-10.0) Eosinophils (%) (Auto) % (0.0-3.0) Basophils (%) (Auto) % (0.0-2.0) Differential Total Cells Counted 100 Neutrophils % (Manual) 90 % (45-75) H Lymphocytes % (Manual) 6 % (20-45) L Monocytes % (Manual) 4 % (1-10) Eosinophils % (Manual) 0 % (0-3) Basophils % (Manual) 0 % (0-2) Band Neutrophils 0 % (0-8) Platelet Estimate Adequate Platelet Morphology Normal Red Blood Cell Morphology Normal Sodium Level 142 MMOL/L (136-145) Potassium Level 3.7 MMOL/L (3.5-5.1) Chloride Level 103 MMOL/L (98-107) Carbon Dioxide Level 35 MMOL/L (21-32) H Anion Gap 4 mmol/L (5-15) L Blood Urea Nitrogen 15 mg/dL (7-18) Creatinine 0.5 MG/DL (0.55-1.30) L Estimat Glomerular Filtration Rate > 60 mL/min (>60) Glucose Level 170 MG/DL (74-106) H Calcium Level 9.3 MG/DL (8.5-10.1) Current Medications Medications (Trade) Dose Ordered Sig/Naye Route PRN Reason Start Time Stop Time Status Last Admin Dose Admin Acetaminophen (Tylenol) 650 mg Q4H PRN ORAL Mild Pain (Pain Scale 1-3) 01/25/20 10:48 02/24/20 10:47 Albuterol/ Ipratropium (Albuterol/ Ipratropium) 3 ml EVERY 6 HOURS HHN 01/25/20 12:00 01/30/20 11:59 01/27/20 07:52 Alprazolam (Xanax) 0.5 mg Q6H PRN ORAL For Anxiety 01/25/20 10:49 02/01/20 10:48 01/27/20 06:24 Cefepime HCl 2 gm/ Dextrose 55 ml @ 110 mls/hr Q24H IVPB 01/26/20 21:00 02/02/20 20:59 01/26/20 21:00 Clonidine HCl (Catapres Tab) 0.1 mg QID ORAL 01/26/20 23:30 04/25/20 23:29 01/27/20 09:26 Famotidine (Pepcid) 20 mg BID ORAL 01/25/20 18:00 04/24/20 17:59 01/27/20 08:40 Furosemide (Lasix) 40 mg DAILY ORAL 01/26/20 09:00 02/25/20 08:59 01/27/20 08:40 Heparin Sodium (Porcine) (Heparin 5000 units/ml) 5,000 units EVERY 12 HOURS SUBQ 01/25/20 21:00 03/10/20 20:59 01/27/20 08:39 Methylprednisolone Sodium Succinate (Solu-MEDROL) 40 mg EVERY 6 HOURS IVP 01/25/20 12:00 04/24/20 11:59 01/27/20 05:06 Sodium Chloride 1,000 ml @ 50 mls/hr Q20H IVLG 01/25/20 12:30 02/24/20 12:29 01/27/20 04:05 Verapamil HCl (Calan SR) 120 mg DAILY ORAL 01/26/20 09:00 02/25/20 08:59 01/27/20 08:41 Armida Zhang MD Jan 27, 2020 10:33"
[2020-01-27] MEDS ORDERED: Omnipaque-300 100ml vial INJ ONE (10:45)
--- NOTE | 2020-01-27 11:13 | Pulmonology Progress Note ---
Subjective Interval Events: None new reported Constitutional: Reports: no symptoms HEENT: Repors: no symptoms Respiratory: Reports: no symptoms Cardiovascular: Reports: no symptoms Gastrointestinal/Abdominal: Denies: nausea, vomiting, diarrhea Genitourinary: Reports: no symptoms Musculoskeletal: Denies: pain Allergies: Coded Allergies: PENICILLINS (Verified Allergy, Severe, 01/25/20) All Systems: reviewed and negative except above Objective Last 24 Hour Vital Signs Date Time Temp Pulse Resp B/P (MAP) Pulse Ox O2 Delivery O2 Flow Rate FiO2 01/27/20 09:26 167/86 01/27/20 09:00 Nasal Cannula 2.0 01/27/20 08:41 129 168/86 01/27/20 08:00 119 01/27/20 08:00 97.9 129 26 168/86 (113) 98 01/27/20 07:52 92 Nasal Cannula 2.0 28 01/27/20 07:47 120 20 97 Nasal Cannula 2.0 32 122 20 91 01/27/20 04:00 79 01/27/20 04:00 98.6 91 23 159/80 (106) 93 01/27/20 00:21 118 21 95 Nasal Cannula 2.0 32 101 25 92 01/27/20 00:00 98.1 119 25 191/94 (126) 91 01/27/20 00:00 128 01/26/20 23:39 191/94 01/26/20 21:00 Nasal Cannula 2.0 01/26/20 20:00 101 01/26/20 20:00 97.9 113 24 145/72 (96) 96 01/26/20 19:00 114 20 97 Nasal Cannula 2.0 32 102 25 91 01/26/20 16:00 96.3 95 20 168/78 (108) 93 01/26/20 16:00 72 01/26/20 12:49 94 20 99 Nasal Cannula 2.0 32 95 20 94 01/26/20 12:00 98.6 106 20 173/85 (114) 94 01/26/20 12:00 86 Intake and Output 01/26/20 01/27/20 19:00 07:00 Intake Total 1615 ml 1530.8 ml Output Total 1000 ml 950 ml Balance 615 ml 580.8 ml Intake Oral 975 ml 480 ml IV Total 640 ml 445.8 ml Other 605 ml Output Urine Total 1000 ml 950 ml General Appearance: no acute distress HEENT: normocephalic Respiratory: chest wall non-tender, lungs clear Abdomen: normal bowel sounds Microbiology Date/Time Source Procedure Growth Status 01/25/20 05:15 Blood Peripheral Blood Culture - Preliminary Resulted 01/25/20 05:00 Blood Peripheral Blood Culture - Preliminary Gram Negative Bacillus 1 Resulted 01/25/20 05:15 Nasopharynx SARS-CoV-2 RdRp Gene Assay - Final Complete Laboratory Tests 01/27/20 05:12: White Blood Count 10.5, Red Blood Count 4.90, Hemoglobin 15.3, Hematocrit 47.4H , Mean Corpuscular Volume 97, Mean Corpuscular Hemoglobin 31.2H, Mean Corpuscular Hemoglobin Concent 32.3, Red Cell Distribution Width 11.5L, Platelet Count 178, Mean Platelet Volume 8.0, Neutrophils (%) (Auto) , Lymphocytes (%) (Auto) , Monocytes (%) (Auto) , Eosinophils (%) (Auto) , Basophils (%) (Auto) , Differential Total Cells Counted 100, Neutrophils % ( Manual) 90H, Lymphocytes % (Manual) 6L, Monocytes % (Manual) 4, Eosinophils % ( Manual) 0, Basophils % (Manual) 0, Band Neutrophils 0, Platelet Estimate Adequate, Platelet Morphology Normal, Red Blood Cell Morphology Normal, Sodium Level 142, Potassium Level 3.7, Chloride Level 103, Carbon Dioxide Level 35H, Anion Gap 4L, Blood Urea Nitrogen 15, Creatinine 0.5L, Estimat Glomerular Filtration Rate > 60, Glucose Level 170H, Calcium Level 9.3 Current Medications Medications (Trade) Dose Ordered Sig/Naye Route PRN Reason Start Time Stop Time Status Last Admin Dose Admin Acetaminophen (Tylenol) 650 mg Q4H PRN ORAL Mild Pain (Pain Scale 1-3) 01/25/20 10:48 02/24/20 10:47 Albuterol/ Ipratropium (Albuterol/ Ipratropium) 3 ml EVERY 6 HOURS HHN 01/25/20 12:00 01/30/20 11:59 01/27/20 07:52 Alprazolam (Xanax) 0.5 mg Q6H PRN ORAL For Anxiety 01/25/20 10:49 02/01/20 10:48 01/27/20 06:24 Barium Sulfate (Readi-Cat 2) 450 ml NOW PRN ORAL Radiology Procedure 01/27/20 10:45 01/29/20 10:34 Cefepime HCl 2 gm/ Dextrose 55 ml @ 110 mls/hr Q24H IVPB 01/26/20 21:00 02/02/20 20:59 01/26/20 21:00 Clonidine HCl (Catapres Tab) 0.1 mg QID ORAL 01/26/20 23:30 04/25/20 23:29 01/27/20 09:26 Famotidine (Pepcid) 20 mg BID ORAL 01/25/20 18:00 04/24/20 17:59 01/27/20 08:40 Furosemide (Lasix) 40 mg DAILY ORAL 01/26/20 09:00 02/25/20 08:59 01/27/20 08:40 Heparin Sodium (Porcine) (Heparin 5000 units/ml) 5,000 units EVERY 12 HOURS SUBQ 01/25/20 21:00 03/10/20 20:59 01/27/20 08:39 Methylprednisolone Sodium Succinate (Solu-MEDROL) 40 mg EVERY 6 HOURS IVP 01/25/20 12:00 04/24/20 11:59 01/27/20 05:06 Sodium Chloride 1,000 ml @ 50 mls/hr Q20H IVLG 01/25/20 12:30 02/24/20 12:29 01/27/20 04:05 Vancomycin HCl ([facility] pharmacy to dose) 1 ea DAILY PRN MISC Per rx protocol 01/27/20 10:45 02/26/20 10:44 Vancomycin HCl 500 mg/Sodium Chloride 110 ml @ 110 mls/hr Q12HR@0300,1500 IVPB 01/27/20 15:00 02/01/20 14:59 Verapamil HCl (Calan SR) 120 mg DAILY ORAL 01/26/20 09:00 02/25/20 08:59 01/27/20 08:41 Assessment/Plan Assessment/Plan IMPRESSION: 1. Right lung pneumonia. 2. Exacerbation of COPD. 3. Obesity. 4. Anxiety. 5. Prediabetes. DISCUSSION: Continue home medications. Continue DuoNeb, steroids, and antibiotics. Also on Xanax. I will follow carefully. Carrie Murray Omar Syed MD Jan 27, 2020 11:13
[2020-01-27 11:49] VITALS: BP 124/51
--- NOTE | 2020-01-27 13:40 | General Progress Note ---
Assessment/Plan Problem List: (1) HTN (hypertension) ICD Codes: I10 - Essential (primary) hypertension SNOMED: 28731290 (2) Diabetes ICD Codes: E11.9 - Type 2 diabetes mellitus without complications SNOMED: 17288006 (3) Dyspnea ICD Codes: R06.00 - Dyspnea, unspecified SNOMED: 405937617 (4) COPD exacerbation ICD Codes: J44.1 - Chronic obstructive pulmonary disease with (acute) exacerbation SNOMED: 247859314 (5) CAP (community acquired pneumonia) ICD Codes: J18.9 - Pneumonia, unspecified organism SNOMED: 563208932 (6) Respiratory distress ICD Codes: R06.03 - Acute respiratory distress SNOMED: 629530968 Status: stable, progressing Assessment/Plan: pt diet o2 pulm tx abx cbc bmp am dc plan snf Subjective Constitutional: Reports: weakness Respiratory: Reports: shortness of breath Allergies: Coded Allergies: PENICILLINS (Verified Allergy, Severe, 01/25/20) All Systems: reviewed and negative except above Subjective o2nc calm Objective Last 24 Hour Vital Signs Date Time Temp Pulse Resp B/P (MAP) Pulse Ox O2 Delivery O2 Flow Rate FiO2 01/27/20 12:56 76 20 97 Nasal Cannula 2.0 32 71 20 91 01/27/20 12:00 81 01/27/20 11:49 97.8 81 20 124/51 (75) 96 01/27/20 09:26 167/86 01/27/20 09:00 Nasal Cannula 2.0 01/27/20 08:41 129 168/86 01/27/20 08:00 119 01/27/20 08:00 97.9 129 26 168/86 (113) 98 01/27/20 07:52 92 Nasal Cannula 2.0 28 01/27/20 07:47 120 20 97 Nasal Cannula 2.0 32 122 20 91 01/27/20 04:00 79 01/27/20 04:00 98.6 91 23 159/80 (106) 93 01/27/20 00:21 118 21 95 Nasal Cannula 2.0 32 101 25 92 01/27/20 00:00 98.1 119 25 191/94 (126) 91 01/27/20 00:00 128 01/26/20 23:39 191/94 01/26/20 21:00 Nasal Cannula 2.0 01/26/20 20:00 101 01/26/20 20:00 97.9 113 24 145/72 (96) 96 01/26/20 19:00 114 20 97 Nasal Cannula 2.0 32 102 25 91 01/26/20 16:00 96.3 95 20 168/78 (108) 93 01/26/20 16:00 72 Intake and Output 01/26/20 01/27/20 19:00 07:00 Intake Total 1615 ml 1530.8 ml Output Total 1000 ml 950 ml Balance 615 ml 580.8 ml Intake Oral 975 ml 480 ml IV Total 640 ml 445.8 ml Other 605 ml Output Urine Total 1000 ml 950 ml Laboratory Tests 01/27/20 05:12: White Blood Count 10.5, Red Blood Count 4.90, Hemoglobin 15.3, Hematocrit 47.4H , Mean Corpuscular Volume 97, Mean Corpuscular Hemoglobin 31.2H, Mean Corpuscular Hemoglobin Concent 32.3, Red Cell Distribution Width 11.5L, Platelet Count 178, Mean Platelet Volume 8.0, Neutrophils (%) (Auto) , Lymphocytes (%) (Auto) , Monocytes (%) (Auto) , Eosinophils (%) (Auto) , Basophils (%) (Auto) , Differential Total Cells Counted 100, Neutrophils % ( Manual) 90H, Lymphocytes % (Manual) 6L, Monocytes % (Manual) 4, Eosinophils % ( Manual) 0, Basophils % (Manual) 0, Band Neutrophils 0, Platelet Estimate Adequate, Platelet Morphology Normal, Red Blood Cell Morphology Normal, Sodium Level 142, Potassium Level 3.7, Chloride Level 103, Carbon Dioxide Level 35H, Anion Gap 4L, Blood Urea Nitrogen 15, Creatinine 0.5L, Estimat Glomerular Filtration Rate > 60, Glucose Level 170H, Calcium Level 9.3 Height (Feet): 5 Height (Inches): 8.00 Weight (Pounds): 178 General Appearance: lethargic EENT: normal ENT inspection Neck: normal alignment Cardiovascular: normal peripheral pulses, normal rate, regular rhythm Respiratory/Chest: chest wall non-tender, lungs clear, normal breath sounds Abdomen: normal bowel sounds, non tender, soft Extremities: normal inspection Edema: no edema noted Arm (L), no edema noted Arm (R), no edema noted Leg (L), no edema noted Leg (R), no edema noted Pedal (L), no edema noted Pedal (R), no edema noted Generalized Neurologic: responsive, motor weakness Skin: normal pigmentation, warm/dry Jean Johnson DO Jan 27, 2020 13:40
--- NOTE | 2020-01-27 13:48 | Cardiac Electrophysiology PN ---
Assessment/Plan Assessment/Plan 1. Hypertension. Blood pressure was in the 180s, currently improved.On Verapamil and Lasix 40 po daily 2. Lower extremity edema.On Lasix . EF 60% 3. Hypoxemia and COPD. Rule out congestive heart failure.EF 60%. Ruled out for [place] 4. Recurrent SVT. Say was supposed to have ablation by Dr De La Cruz many years ago but never followed up on that. Still had 2 episodes of sustained SVT just overnight despite Verapamil. Will schedule EPS and ablation as out patient STAT ECG if develops SVT again DW RN Subjective Subjective Had SVT at midnight and again at 7 am today that self terminated Objective Last 24 Hour Vital Signs Date Time Temp Pulse Resp B/P (MAP) Pulse Ox O2 Delivery O2 Flow Rate FiO2 01/27/20 12:56 76 20 97 Nasal Cannula 2.0 32 71 20 91 01/27/20 12:00 81 01/27/20 11:49 97.8 81 20 124/51 (75) 96 01/27/20 09:26 167/86 01/27/20 09:00 Nasal Cannula 2.0 01/27/20 08:41 129 168/86 01/27/20 08:00 119 01/27/20 08:00 97.9 129 26 168/86 (113) 98 01/27/20 07:52 92 Nasal Cannula 2.0 28 01/27/20 07:47 120 20 97 Nasal Cannula 2.0 32 122 20 91 01/27/20 04:00 79 01/27/20 04:00 98.6 91 23 159/80 (106) 93 01/27/20 00:21 118 21 95 Nasal Cannula 2.0 32 101 25 92 01/27/20 00:00 98.1 119 25 191/94 (126) 91 01/27/20 00:00 128 01/26/20 23:39 191/94 01/26/20 21:00 Nasal Cannula 2.0 01/26/20 20:00 101 01/26/20 20:00 97.9 113 24 145/72 (96) 96 01/26/20 19:00 114 20 97 Nasal Cannula 2.0 32 102 25 91 01/26/20 16:00 96.3 95 20 168/78 (108) 93 01/26/20 16:00 72 Intake and Output 01/26/20 01/27/20 19:00 07:00 Intake Total 1615 ml 1530.8 ml Output Total 1000 ml 950 ml Balance 615 ml 580.8 ml Intake Oral 975 ml 480 ml IV Total 640 ml 445.8 ml Other 605 ml Output Urine Total 1000 ml 950 ml Laboratory Tests Test 01/27/20 05:12 White Blood Count 10.5 K/UL (4.8-10.8) Red Blood Count 4.90 M/UL (4.20-5.40) Hemoglobin 15.3 G/DL (12.0-16.0) Hematocrit 47.4 % (37.0-47.0) H Mean Corpuscular Volume 97 FL (80-99) Mean Corpuscular Hemoglobin 31.2 PG (27.0-31.0) H Mean Corpuscular Hemoglobin Concent 32.3 G/DL (32.0-36.0) Red Cell Distribution Width 11.5 % (11.6-14.8) L Platelet Count 178 K/UL (150-450) Mean Platelet Volume 8.0 FL (6.5-10.1) Neutrophils (%) (Auto) % (45.0-75.0) Lymphocytes (%) (Auto) % (20.0-45.0) Monocytes (%) (Auto) % (1.0-10.0) Eosinophils (%) (Auto) % (0.0-3.0) Basophils (%) (Auto) % (0.0-2.0) Differential Total Cells Counted 100 Neutrophils % (Manual) 90 % (45-75) H Lymphocytes % (Manual) 6 % (20-45) L Monocytes % (Manual) 4 % (1-10) Eosinophils % (Manual) 0 % (0-3) Basophils % (Manual) 0 % (0-2) Band Neutrophils 0 % (0-8) Platelet Estimate Adequate Platelet Morphology Normal Red Blood Cell Morphology Normal Sodium Level 142 MMOL/L (136-145) Potassium Level 3.7 MMOL/L (3.5-5.1) Chloride Level 103 MMOL/L (98-107) Carbon Dioxide Level 35 MMOL/L (21-32) H Anion Gap 4 mmol/L (5-15) L Blood Urea Nitrogen 15 mg/dL (7-18) Creatinine 0.5 MG/DL (0.55-1.30) L Estimat Glomerular Filtration Rate > 60 mL/min (>60) Glucose Level 170 MG/DL (74-106) H Calcium Level 9.3 MG/DL (8.5-10.1) Microbiology Date/Time Source Procedure Growth Status 01/25/20 05:15 Blood Peripheral Blood Culture - Preliminary Resulted 01/25/20 05:00 Blood Peripheral Blood Culture - Preliminary Gram Negative Bacillus 1 Resulted 01/25/20 05:15 Nasopharynx SARS-CoV-2 RdRp Gene Assay - Final Complete Objective HEAD AND NECK: Shows positive JVD. LUNGS: Decreased breath sounds. CARDIOVASCULAR: Shows regular S1 and S2 with no gallop. ABDOMEN: Soft. EXTREMITIES: 1+ pitting edema. Jin Donahue MD Jan 27, 2020 13:48
[2020-01-27] MEDS: Vancomycin 500 MG in NS 110 ML IVPB SCH (15:11)
[2020-01-27 16:00] VITALS: BP 138/56
[2020-01-27 20:00] VITALS: BP 161/79
[2020-01-27] MEDS: Cefepime HCl 2 GM in D5W 55 ML IVPB SCH (20:19)
[2020-01-28] VITALS (7 sets, daily range): BP systolic 128–163; BP diastolic 50–79
[2020-01-28] MEDS ORDERED: Albuterol/Ipratropium 3ml neb ONE (01:14)
[2020-01-28] MEDS: Albuterol/Ipratropium 3ml neb HHN SCH ×4 (01:32→20:34)
[2020-01-28] MEDS: Vancomycin 500 MG in NS 110 ML IVPB SCH ×2 (02:19→15:45)
[2020-01-28] MEDS: Solu-MEDROL 40mg Inj IVP SCH ×3 (05:35→18:48)
[2020-01-28 07:10] LABS: ANION GAP 3 mmol/L (5-15); BLOOD UREA NITROGEN 18 mg/dL (7-18); CALCIUM 8.9 MG/DL (8.5-10.1); CARBON DIOXIDE 39 MMOL/L (21-32); CHLORIDE 102 MMOL/L (98-107); CREATININE 0.7 MG/DL (0.55-1.30); POTASSIUM 3.7 MMOL/L (3.5-5.1); SODIUM 144 MMOL/L (136-145)
[2020-01-28 07:16] LABS: HEMATOCRIT 46.7 % (37.0-47.0); MEAN CORPUSCULAR VOLUME 97 FL (80-99); PLATELET COUNT 180 K/UL (150-450); RED BLOOD COUNT 4.81 M/UL (4.20-5.40); RED CELL DISTRIBUTION WIDTH 11.4 % (11.6-14.8)
--- NOTE | 2020-01-28 08:00 | Consultation ---
DATE OF CONSULTATION: 01/27/2020 PSYCHOTHERAPY CONSULTATION PROGRESS NOTE CONSULTING PHYSICIAN: Yamil Taylor PsyD TREATING ATTENDING: Jean Johnson DO HISTORY OF PRESENT ILLNESS: The patient is a 79-year-old female patient. She was brought to the hospital with chronic COPD exacerbation. She anxiety. The patient states that she has been taking medications for anxiety for several years, not sure . Recently, she COVID-19. She states she is constantly anxious and helpless and is worried. The patient states that she no longer has outpatient treatment 01:35 and for this reason it has been difficult for anxiety. She denies suicidal or homicidal thoughts of ideation, denies any auditory or visual hallucinations. anxious. When I saw this patient, she was very cooperative, very concerned about ____. PAST MEDICAL HISTORY: Includes a history of diabetes and COPD. ALLERGIES: The patient is allergic to penicillin. SUBSTANCE ABUSE HISTORY: She denies history of illicit substance use. She states that she has occasional alcohol use, however, nothing significant. SOCIAL HISTORY: This is a 79-year-old female patient who lives at home in [place]. Financially sustained through [employer]. MENTAL STATUS EXAMINATION: Alert and oriented to person, place, time, and situation. Her mood is anxious. Affect congruent. Thought process is organized. Thought content, linear. She has fair attention and concentration. Fair insight, judgment, and impulse control. having severe anxiety. No significant stressors. DIAGNOSES: 1. Generalized anxiety disorder. 2. COPD, diabetes. 3. Psychosocial stressors are severe. I ASSESSED THIS PATIENT AND PROVIDED HER WITH: 4. Supportive psychotherapy helping her positive communication skills having behavior therapy to help her anxiety and , helping her modify maladaptive behavior. PLAN: Plan is to maintain medication compliance with positive coping skills and stabilizing the thoughts and behavior. Psychotherapy service provided for 45 minutes. This clinician has reviewed the patient's chart and discussed treatment with treatment team. Yamil Taylor PsyD. DR: Iggy JOB#: [id number] CC:
[2020-01-28] MEDS: Furosemide 40mg tab ORAL SCH (08:50)
[2020-01-28] MEDS: Heparin 5000 units/ml inj SUBQ SCH ×2 (08:56→21:00)
--- NOTE | 2020-01-28 09:04 | General Progress Note ---
Assessment/Plan Problem List: (1) HTN (hypertension) ICD Codes: I10 - Essential (primary) hypertension SNOMED: 40527844 (2) Diabetes ICD Codes: E11.9 - Type 2 diabetes mellitus without complications SNOMED: 29506164 (3) Dyspnea ICD Codes: R06.00 - Dyspnea, unspecified SNOMED: 590900176 (4) COPD exacerbation ICD Codes: J44.1 - Chronic obstructive pulmonary disease with (acute) exacerbation SNOMED: 585813106 (5) CAP (community acquired pneumonia) ICD Codes: J18.9 - Pneumonia, unspecified organism SNOMED: 254625586 (6) Respiratory distress ICD Codes: R06.03 - Acute respiratory distress SNOMED: 366000556 Status: stable, progressing Assessment/Plan: pt diet o2 pulm tx abx cbc bmp am dc aru eval Subjective Constitutional: Reports: weakness Respiratory: Reports: shortness of breath Allergies: Coded Allergies: PENICILLINS (Verified Allergy, Severe, 01/25/20) All Systems: reviewed and negative except above Subjective o2nc calm Objective Last 24 Hour Vital Signs Date Time Temp Pulse Resp B/P (MAP) Pulse Ox O2 Delivery O2 Flow Rate FiO2 01/28/20 08:50 163/79 01/28/20 08:49 79 163/79 01/28/20 08:00 96.7 79 20 163/79 (107) 94 01/28/20 07:48 96 Nasal Cannula 2.0 28 01/28/20 07:47 89 20 99 Nasal Cannula 2.0 28 75 22 96 01/28/20 04:00 97.4 72 22 128/50 (76) 96 01/28/20 04:00 73 01/28/20 00:00 97.1 72 20 133/54 (80) 97 01/28/20 00:00 72 01/27/20 21:00 Nasal Cannula 2.0 01/27/20 20:19 161/79 01/27/20 20:00 126 01/27/20 20:00 97.1 119 24 161/79 (106) 93 01/27/20 19:34 86 20 98 Nasal Cannula 2.0 28 88 21 89 01/27/20 19:29 91 Nasal Cannula 2.0 28 01/27/20 17:33 151/67 01/27/20 16:00 96.9 80 24 138/56 (83) 92 01/27/20 16:00 71 01/27/20 13:53 158/63 01/27/20 12:56 76 20 97 Nasal Cannula 2.0 32 71 20 91 01/27/20 12:00 81 01/27/20 11:49 97.8 81 20 124/51 (75) 96 01/27/20 09:26 167/86 Intake and Output 01/27/20 01/28/20 19:00 07:00 Intake Total 1400 ml 2071.7 ml Output Total 710 ml 1500 ml Balance 690 ml 571.7 ml Intake Oral 720 ml IV Total 650 ml 586.7 ml Other 750 ml 765 ml Output Urine Total 710 ml 1500 ml # Voids 5 Laboratory Tests 01/28/20 05:59: White Blood Count 7.0, Red Blood Count 4.81, Hemoglobin 15.0, Hematocrit 46.7, Mean Corpuscular Volume 97, Mean Corpuscular Hemoglobin 31.2H, Mean Corpuscular Hemoglobin Concent 32.1, Red Cell Distribution Width 11.4L, Platelet Count 180, Mean Platelet Volume 8.3, Neutrophils (%) (Auto) , Lymphocytes (%) (Auto) , Monocytes (%) (Auto) , Eosinophils (%) (Auto) , Basophils (%) (Auto) , Neutrophils % (Manual) [Pending], Lymphocytes % (Manual) [Pending], Platelet Estimate [Pending], Platelet Morphology [Pending], Sodium Level 144, Potassium Level 3.7, Chloride Level 102, Carbon Dioxide Level 39H, Anion Gap 3L, Blood Urea Nitrogen 18, Creatinine 0.7, Estimat Glomerular Filtration Rate > 60, Glucose Level 174H, Calcium Level 8.9 Height (Feet): 5 Height (Inches): 8.00 Weight (Pounds): 178 General Appearance: lethargic EENT: normal ENT inspection Neck: normal alignment Cardiovascular: normal peripheral pulses, normal rate, regular rhythm Respiratory/Chest: chest wall non-tender, lungs clear, normal breath sounds Abdomen: normal bowel sounds, non tender, soft Extremities: normal inspection Edema: no edema noted Arm (L), no edema noted Arm (R), no edema noted Leg (L), no edema noted Leg (R), no edema noted Pedal (L), no edema noted Pedal (R), no edema noted Generalized Neurologic: responsive, motor weakness Skin: normal pigmentation, warm/dry Jean Johnson DO Jan 28, 2020 09:04
--- NOTE | 2020-01-28 10:23 | Infectious Diseases Prog Note ---
"Assessment/Plan Assessment/Plan antibiotics : vancomycin iv, cefepime A 1. pneumonia COVID 19 negative 2. COPD 3. asthma 4. gram positive | enterobacter sepsis P 1. continue iv vancomycin, cefepime 2. will follow up culture 3. CT chest | abdomen | pelvis pending Subjective Constitutional: Denies: fever, chills Respiratory: Reports: shortness of breath, dry cough Gastrointestinal/Abdominal: Denies: nausea, vomiting, diarrhea Musculoskeletal: Reports: pain Allergies: Coded Allergies: PENICILLINS (Verified Allergy, Severe, 01/25/20) Objective Last 24 Hour Vital Signs Date Time Temp Pulse Resp B/P (MAP) Pulse Ox O2 Delivery O2 Flow Rate FiO2 01/28/20 09:00 Nasal Cannula 2.0 01/28/20 08:50 163/79 01/28/20 08:49 79 163/79 01/28/20 08:00 79 01/28/20 08:00 96.7 79 20 163/79 (107) 94 01/28/20 07:48 96 Nasal Cannula 2.0 28 01/28/20 07:47 89 20 99 Nasal Cannula 2.0 28 75 22 96 01/28/20 04:00 97.4 72 22 128/50 (76) 96 01/28/20 04:00 73 01/28/20 00:00 97.1 72 20 133/54 (80) 97 01/28/20 00:00 72 01/27/20 21:00 Nasal Cannula 2.0 01/27/20 20:19 161/79 01/27/20 20:00 126 01/27/20 20:00 97.1 119 24 161/79 (106) 93 01/27/20 19:34 86 20 98 Nasal Cannula 2.0 28 88 21 89 01/27/20 19:29 91 Nasal Cannula 2.0 28 01/27/20 17:33 151/67 01/27/20 16:00 96.9 80 24 138/56 (83) 92 01/27/20 16:00 71 01/27/20 13:53 158/63 01/27/20 12:56 76 20 97 Nasal Cannula 2.0 32 71 20 91 01/27/20 12:00 81 01/27/20 11:49 97.8 81 20 124/51 (75) 96 Height (Feet): 5 Height (Inches): 8.00 Weight (Pounds): 178 Respiratory/Chest: lungs clear Cardiovascular: normal rate, regular rhythm, no gallop/murmur Abdomen: soft, non tender Extremities: other - + edema Laboratory Tests Test 01/28/20 05:59 White Blood Count 7.0 K/UL (4.8-10.8) Red Blood Count 4.81 M/UL (4.20-5.40) Hemoglobin 15.0 G/DL (12.0-16.0) Hematocrit 46.7 % (37.0-47.0) Mean Corpuscular Volume 97 FL (80-99) Mean Corpuscular Hemoglobin 31.2 PG (27.0-31.0) H Mean Corpuscular Hemoglobin Concent 32.1 G/DL (32.0-36.0) Red Cell Distribution Width 11.4 % (11.6-14.8) L Platelet Count 180 K/UL (150-450) Mean Platelet Volume 8.3 FL (6.5-10.1) Neutrophils (%) (Auto) % (45.0-75.0) Lymphocytes (%) (Auto) % (20.0-45.0) Monocytes (%) (Auto) % (1.0-10.0) Eosinophils (%) (Auto) % (0.0-3.0) Basophils (%) (Auto) % (0.0-2.0) Neutrophils % (Manual) Pending Lymphocytes % (Manual) Pending Platelet Estimate Pending Platelet Morphology Pending Sodium Level 144 MMOL/L (136-145) Potassium Level 3.7 MMOL/L (3.5-5.1) Chloride Level 102 MMOL/L (98-107) Carbon Dioxide Level 39 MMOL/L (21-32) H Anion Gap 3 mmol/L (5-15) L Blood Urea Nitrogen 18 mg/dL (7-18) Creatinine 0.7 MG/DL (0.55-1.30) Estimat Glomerular Filtration Rate > 60 mL/min (>60) Glucose Level 174 MG/DL (74-106) H Calcium Level 8.9 MG/DL (8.5-10.1) Current Medications Medications (Trade) Dose Ordered Sig/Naye Route PRN Reason Start Time Stop Time Status Last Admin Dose Admin Acetaminophen (Tylenol) 650 mg Q4H PRN ORAL Mild Pain (Pain Scale 1-3) 01/25/20 10:48 02/24/20 10:47 Albuterol/ Ipratropium (Albuterol/ Ipratropium) 3 ml EVERY 6 HOURS HHN 01/25/20 12:00 01/30/20 11:59 01/28/20 07:47 Alprazolam (Xanax) 0.5 mg Q6H PRN ORAL For Anxiety 01/25/20 10:49 02/01/20 10:48 01/27/20 20:18 Barium Sulfate (Readi-Cat 2) 450 ml NOW PRN ORAL Radiology Procedure 01/27/20 10:45 01/29/20 10:34 Cefepime HCl 2 gm/ Dextrose 55 ml @ 110 mls/hr Q24H IVPB 01/26/20 21:00 02/02/20 20:59 01/27/20 20:19 Clonidine HCl (Catapres Tab) 0.1 mg QID ORAL 01/26/20 23:30 04/25/20 23:29 01/28/20 08:50 Famotidine (Pepcid) 20 mg BID ORAL 01/25/20 18:00 04/24/20 17:59 01/28/20 08:50 Furosemide (Lasix) 40 mg DAILY ORAL 01/26/20 09:00 02/25/20 08:59 01/28/20 08:50 Heparin Sodium (Porcine) (Heparin 5000 units/ml) 5,000 units EVERY 12 HOURS SUBQ 01/25/20 21:00 03/10/20 20:59 01/28/20 08:56 Methylprednisolone Sodium Succinate (Solu-MEDROL) 40 mg EVERY 6 HOURS IVP 01/25/20 12:00 04/24/20 11:59 01/28/20 05:35 Sodium Chloride 1,000 ml @ 50 mls/hr Q20H IVLG 01/25/20 12:30 02/24/20 12:29 01/28/20 01:16 Vancomycin HCl (Vanco pharmacy to dose) 1 ea DAILY PRN MISC Per rx protocol 01/27/20 10:45 02/26/20 10:44 Vancomycin HCl 500 mg/Sodium Chloride 110 ml @ 110 mls/hr Q12HR@0300,1500 IVPB 01/27/20 15:00 02/01/20 14:59 01/28/20 02:19 Verapamil HCl (Calan SR) 120 mg DAILY ORAL 01/26/20 09:00 02/25/20 08:59 01/28/20 08:49 Armida Zhang MD Jan 28, 2020 10:23"
--- NOTE | 2020-01-28 10:55 | Pulmonology Progress Note ---
Subjective Interval Events: None new reported Constitutional: Denies: fever, chills HEENT: Repors: no symptoms Respiratory: Reports: no symptoms Cardiovascular: Reports: no symptoms Gastrointestinal/Abdominal: Denies: nausea, vomiting, diarrhea Genitourinary: Reports: no symptoms Musculoskeletal: Reports: pain Allergies: Coded Allergies: PENICILLINS (Verified Allergy, Severe, 01/25/20) All Systems: reviewed and negative except above Objective Last 24 Hour Vital Signs Date Time Temp Pulse Resp B/P (MAP) Pulse Ox O2 Delivery O2 Flow Rate FiO2 01/28/20 09:00 Nasal Cannula 2.0 01/28/20 08:50 163/79 01/28/20 08:49 79 163/79 01/28/20 08:00 79 01/28/20 08:00 96.7 79 20 163/79 (107) 94 01/28/20 07:48 96 Nasal Cannula 2.0 28 01/28/20 07:47 89 20 99 Nasal Cannula 2.0 28 75 22 96 01/28/20 04:00 97.4 72 22 128/50 (76) 96 01/28/20 04:00 73 01/28/20 00:00 97.1 72 20 133/54 (80) 97 01/28/20 00:00 72 01/27/20 21:00 Nasal Cannula 2.0 01/27/20 20:19 161/79 01/27/20 20:00 126 01/27/20 20:00 97.1 119 24 161/79 (106) 93 01/27/20 19:34 86 20 98 Nasal Cannula 2.0 28 88 21 89 01/27/20 19:29 91 Nasal Cannula 2.0 28 01/27/20 17:33 151/67 01/27/20 16:00 96.9 80 24 138/56 (83) 92 01/27/20 16:00 71 01/27/20 13:53 158/63 01/27/20 12:56 76 20 97 Nasal Cannula 2.0 32 71 20 91 01/27/20 12:00 81 01/27/20 11:49 97.8 81 20 124/51 (75) 96 Intake and Output 01/27/20 01/28/20 19:00 07:00 Intake Total 1400 ml 2071.7 ml Output Total 710 ml 1500 ml Balance 690 ml 571.7 ml Intake Oral 720 ml IV Total 650 ml 586.7 ml Other 750 ml 765 ml Output Urine Total 710 ml 1500 ml # Voids 5 General Appearance: no acute distress HEENT: normocephalic Respiratory: chest wall non-tender, lungs clear Abdomen: normal bowel sounds Laboratory Tests 01/28/20 05:59: White Blood Count 7.0, Red Blood Count 4.81, Hemoglobin 15.0, Hematocrit 46.7, Mean Corpuscular Volume 97, Mean Corpuscular Hemoglobin 31.2H, Mean Corpuscular Hemoglobin Concent 32.1, Red Cell Distribution Width 11.4L, Platelet Count 180, Mean Platelet Volume 8.3, Neutrophils (%) (Auto) , Lymphocytes (%) (Auto) , Monocytes (%) (Auto) , Eosinophils (%) (Auto) , Basophils (%) (Auto) , Neutrophils % (Manual) [Pending], Lymphocytes % (Manual) [Pending], Platelet Estimate [Pending], Platelet Morphology [Pending], Sodium Level 144, Potassium Level 3.7, Chloride Level 102, Carbon Dioxide Level 39H, Anion Gap 3L, Blood Urea Nitrogen 18, Creatinine 0.7, Estimat Glomerular Filtration Rate > 60, Glucose Level 174H, Calcium Level 8.9 Current Medications Medications (Trade) Dose Ordered Sig/Naye Route PRN Reason Start Time Stop Time Status Last Admin Dose Admin Acetaminophen (Tylenol) 650 mg Q4H PRN ORAL Mild Pain (Pain Scale 1-3) 01/25/20 10:48 02/24/20 10:47 Albuterol/ Ipratropium (Albuterol/ Ipratropium) 3 ml EVERY 6 HOURS HHN 01/25/20 12:00 01/30/20 11:59 01/28/20 07:47 Alprazolam (Xanax) 0.5 mg Q6H PRN ORAL For Anxiety 01/25/20 10:49 02/01/20 10:48 01/27/20 20:18 Barium Sulfate (Readi-Cat 2) 450 ml NOW PRN ORAL Radiology Procedure 01/27/20 10:45 01/29/20 10:34 Cefepime HCl 2 gm/ Dextrose 55 ml @ 110 mls/hr Q24H IVPB 01/26/20 21:00 02/02/20 20:59 01/27/20 20:19 Clonidine HCl (Catapres Tab) 0.1 mg QID ORAL 01/26/20 23:30 04/25/20 23:29 01/28/20 08:50 Famotidine (Pepcid) 20 mg BID ORAL 01/25/20 18:00 04/24/20 17:59 01/28/20 08:50 Furosemide (Lasix) 40 mg DAILY ORAL 01/26/20 09:00 02/25/20 08:59 01/28/20 08:50 Heparin Sodium (Porcine) (Heparin 5000 units/ml) 5,000 units EVERY 12 HOURS SUBQ 01/25/20 21:00 03/10/20 20:59 01/28/20 08:56 Methylprednisolone Sodium Succinate (Solu-MEDROL) 40 mg EVERY 6 HOURS IVP 01/25/20 12:00 04/24/20 11:59 01/28/20 05:35 Sodium Chloride 1,000 ml @ 50 mls/hr Q20H IVLG 01/25/20 12:30 02/24/20 12:29 01/28/20 01:16 Vancomycin HCl (Vanco pharmacy to dose) 1 ea DAILY PRN MISC Per rx protocol 01/27/20 10:45 02/26/20 10:44 Vancomycin HCl 500 mg/Sodium Chloride 110 ml @ 110 mls/hr Q12HR@0300,1500 IVPB 01/27/20 15:00 02/01/20 14:59 01/28/20 02:19 Verapamil HCl (Calan SR) 120 mg DAILY ORAL 01/26/20 09:00 02/25/20 08:59 01/28/20 08:49 Assessment/Plan Assessment/Plan IMPRESSION: 1. Right lung pneumonia. 2. Exacerbation of COPD. 3. Obesity. 4. Anxiety. 5. Prediabetes. DISCUSSION: Continue home medications. Continue DuoNeb, steroids, and antibiotics. Also on Xanax. I will follow carefully. Carrie Murray Omar Syed MD Jan 28, 2020 10:55
--- NOTE | 2020-01-28 11:32 | Cardiac Electrophysiology PN ---
Assessment/Plan Assessment/Plan 1. Hypertension. Blood pressure was in the 180s, currently improved.On Verapamil and Lasix 40 po daily 2. Lower extremity edema.On Lasix . EF 60% 3. Hypoxemia and COPD. Rule out congestive heart failure.EF 60%. Ruled out for [facility] 4. Recurrent SVT. Say was supposed to have ablation by Dr De La Cruz many years ago but never followed up on that. Had 2 episodes of sustained SVT 2 days ago and 2 more sustained SVTs that was caught on 12 lead ECG with Long RP tachycardia and negative P wave in inferior leads despite Verapamil. Will transfer for EPS and ablation DW RN Subjective Subjective Had multiple episodes of SVT documented on 12 lead ECG yesterday despite Verapamil Objective Last 24 Hour Vital Signs Date Time Temp Pulse Resp B/P (MAP) Pulse Ox O2 Delivery O2 Flow Rate FiO2 01/28/20 09:00 Nasal Cannula 2.0 01/28/20 08:50 163/79 01/28/20 08:49 79 163/79 01/28/20 08:00 79 01/28/20 08:00 96.7 79 20 163/79 (107) 94 01/28/20 07:48 96 Nasal Cannula 2.0 28 01/28/20 07:47 89 20 99 Nasal Cannula 2.0 28 75 22 96 01/28/20 04:00 97.4 72 22 128/50 (76) 96 01/28/20 04:00 73 01/28/20 00:00 97.1 72 20 133/54 (80) 97 01/28/20 00:00 72 01/27/20 21:00 Nasal Cannula 2.0 01/27/20 20:19 161/79 01/27/20 20:00 126 01/27/20 20:00 97.1 119 24 161/79 (106) 93 01/27/20 19:34 86 20 98 Nasal Cannula 2.0 28 88 21 89 01/27/20 19:29 91 Nasal Cannula 2.0 28 01/27/20 17:33 151/67 01/27/20 16:00 96.9 80 24 138/56 (83) 92 01/27/20 16:00 71 01/27/20 13:53 158/63 01/27/20 12:56 76 20 97 Nasal Cannula 2.0 32 71 20 91 01/27/20 12:00 81 01/27/20 11:49 97.8 81 20 124/51 (75) 96 Intake and Output 01/27/20 01/28/20 19:00 07:00 Intake Total 1400 ml 2071.7 ml Output Total 710 ml 1500 ml Balance 690 ml 571.7 ml Intake Oral 720 ml IV Total 650 ml 586.7 ml Other 750 ml 765 ml Output Urine Total 710 ml 1500 ml # Voids 5 Laboratory Tests Test 01/28/20 05:59 White Blood Count 7.0 K/UL (4.8-10.8) Red Blood Count 4.81 M/UL (4.20-5.40) Hemoglobin 15.0 G/DL (12.0-16.0) Hematocrit 46.7 % (37.0-47.0) Mean Corpuscular Volume 97 FL (80-99) Mean Corpuscular Hemoglobin 31.2 PG (27.0-31.0) H Mean Corpuscular Hemoglobin Concent 32.1 G/DL (32.0-36.0) Red Cell Distribution Width 11.4 % (11.6-14.8) L Platelet Count 180 K/UL (150-450) Mean Platelet Volume 8.3 FL (6.5-10.1) Neutrophils (%) (Auto) % (45.0-75.0) Lymphocytes (%) (Auto) % (20.0-45.0) Monocytes (%) (Auto) % (1.0-10.0) Eosinophils (%) (Auto) % (0.0-3.0) Basophils (%) (Auto) % (0.0-2.0) Differential Total Cells Counted 100 Neutrophils % (Manual) 84 % (45-75) H Lymphocytes % (Manual) 12 % (20-45) L Monocytes % (Manual) 4 % (1-10) Eosinophils % (Manual) 0 % (0-3) Basophils % (Manual) 0 % (0-2) Band Neutrophils 0 % (0-8) Platelet Estimate Adequate Platelet Morphology Normal Red Blood Cell Morphology Normal Sodium Level 144 MMOL/L (136-145) Potassium Level 3.7 MMOL/L (3.5-5.1) Chloride Level 102 MMOL/L (98-107) Carbon Dioxide Level 39 MMOL/L (21-32) H Anion Gap 3 mmol/L (5-15) L Blood Urea Nitrogen 18 mg/dL (7-18) Creatinine 0.7 MG/DL (0.55-1.30) Estimat Glomerular Filtration Rate > 60 mL/min (>60) Glucose Level 174 MG/DL (74-106) H Calcium Level 8.9 MG/DL (8.5-10.1) Objective HEAD AND NECK: Mild JVD. LUNGS: Decreased breath sounds. CARDIOVASCULAR: Shows regular S1 and S2 with no gallop. ABDOMEN: Soft. EXTREMITIES: 1+ pitting edema. Jin Donahue MD Jan 28, 2020 11:32
[2020-01-28] MEDS: ALPRAZolam 0.5mg tab ORAL PRN ×2 (12:12→21:48)
--- NOTE | 2020-01-28 13:59 | Consultation ---
DATE OF CONSULTATION: 01/28/2020 INITIAL PSYCHIATRIC EVALUATION HISTORY OF PRESENT ILLNESS: This is a 79-year-old female patient. She came in with medical diagnoses of shortness of breath, COPD exacerbation, and right lower lobe pneumonia. The patient initially came in because of medical problems. This patient has been taking medications for anxiety. Now, she has higher levels of anxiety and depression so there was a daily psychiatric consultation requested for this patient to be seen. I saw her and assessed at the bedside. She admits that she has been taking medications for anxiety but still does have some anxiety and depression at this point. She feelings of helplessness and hopelessness. She takes Xanax as needed. She states she would like to see an outpatient provider upon discharge for the anxiety as well but she will likely start medication for anxiety at this point as well. Denies any current suicidal or homicidal thoughts. PAST MEDICAL HISTORY: She has history of diabetes and COPD. ALLERGIES: She has allergies to Penicillin. PSYCHOTROPIC MEDICATIONS ON ADMISSION: The patient currently taking Xanax as needed at 0.5 mg every 6 hours p.r.n. anxiety and agitation. PAIN ASSESSMENT: pain. DEVELOPMENTAL PROBLEMS: Denies. FAMILY PSYCHIATRIC HISTORY: Denies. SUBSTANCE ABUSE HISTORY: The patient denies any history of drug use but she has occasional alcohol use. SOCIAL HISTORY: The patient lives at home with her family. She is financially supported by [employer] and Medicare. No legal problems. FAMILY INTERACTIONS AND RELATIONSHIPS: Good. PSYCHIATRIC HISTORY: History of major depressive disorder and generalized anxiety disorder. STRENGTHS: She is motivated to get better and has a place to live. WEAKNESSES: Impulsive, minimal support system. MENTAL STATUS EXAMINATION: This is a 79-year-old female. Her appearance is well groomed. Attitude slightly anxious, irritable. Affect guarded, restricted. Intellect is good as she knows current events and knows last four presidents. Mood, depressed and anxious. Motor activity, psychomotor agitation. Attention span is good, she is able to do serial sevens and spell world backwards. Orientation x3 to person, place, time. Speech is normal volume and slow. Thought process, linear and goal directed. Thought content, denies auditory or visual hallucinations and delusions. Abstract reasoning is good, she does understand proverbs and does not have concrete thinking. Insight is fair as she understands why she is in the hospital. Judgment is good, she can make her own decisions. She denies any current suicidal or homicidal ideation. Short-term memory, 3/3 with word recall after 5 minutes delay with good short-term memory. Long-term memory is intact based on the knowledge of long-term events in her life such as high school that she went to. Her gait is normal. There are no abnormal movements. DIAGNOSES: 1. Generalized anxiety disorder, rule out major depressive disorder, mild, recurrent. 2. No secondary. 3. Medical, COPD, diabetes, hypertension. 4. Psychosocial stressors, financial. 5. Functional impairment is mild. PLAN: The patient will continue with Xanax at dose of 0.5 mg every 6 hours p.r.n. anxiety and agitation. A 20-minutes of cognitive behavioral therapy to help her identify automatic negative thoughts, help convert negative thoughts to more positive thoughts to reduce depression, anxiety, mood lability. Estimated length of stay three to seven days. Prognosis is fair. She will continue to be followed by Psychiatry and is welcome to see [facility] on outpatient upon discharge. She had been given outpatient number, to call and make an appointment upon discharge, see outpatient Psychiatry at [facility]. Chart reviewed and discussed with staff. Seen and assessed at bedside. I would like to thank, Dr. Jean Johnson, for this interesting consultation. Sangeetha Valentin M.D. DR: Zafar JOB#: [id number] CC:
--- NOTE | 2020-01-28 16:04 | Diagnostic Imaging Report ---
CLINICAL INDICATION:Chest pain. Abdominal pain. TECHNIQUE: Patient ingested oral contrast. IV administration nonionic contrast multiphasic spiral acquisitions obtained through the chest, abdomen, and pelvis. Multiplanar reconstructions were generated. Total dose length product 775 mGycm. CTDIvol(s) 6, 66, 7, 10 mGy. Radiation dose was minimized using automated exposure control COMPARISON: none FINDINGS Chest: The lungs demonstrate panlobular emphysema, predominantly in the upper lobes and greater on the left. No infiltrates, effusions, masses, nodules, or congestion demonstrated. There is some scarring or atelectasis in the lingula as well as in the right middle lobe. There is also some scarring or atelectasis at the right lung base. The heart is borderline enlarged. No pericardial effusion. No mediastinal or hilar mass or adenopathy. No axillary or chest wall mass or adenopathy. Abdomen pelvis: There are colonic diverticula. There is no evidence of acute diverticulitis. Considerable stool is seen in the proximal colon. The appendix is normal. No small bowel distention. No small bowel wall thickening. The esophagus, stomach, duodenum are unremarkable. The liver is mildly hypoattenuating. There is focal ectasia of the medial branch of the left portal vein, significance uncertain but doubtful. The gallbladder, bile ducts are unremarkable. The pancreas is slightly atrophic. The spleen, adrenals, kidneys are unremarkable. No retroperitoneal or mesenteric mass or adenopathy. The bladder is distended. There are bilateral bladder diverticula demonstrated. The uterus is absent. No pelvic mass or adenopathy. No retroperitoneal or mesenteric mass or adenopathy. The bones are unremarkable except for very mild degenerative spondylosis changes IMPRESSION: No acute abnormality Evidence of COPD with panlobular predominantly upper lobe emphysema Minimal pulmonary parenchymal atelectasis and/or scarring Borderline cardiomegaly Distended bladder with bladder diverticula Fatty liver Evidence of prior hysterectomy Colonic diverticulosis The CT scanner at [facility] is accredited by the [employer] and the scans are performed using protocols designed to limit radiation exposure to as low as reasonably achievable to attain images of sufficient resolution adequate for diagnostic evaluation.
[2020-01-28] MEDS: Cefepime HCl 2 GM in D5W 55 ML IVPB SCH (20:45)
--- NOTE | 2020-01-30 13:54 | Discharge Summary ---
Discharge Summary Discharge Summary _ DATE OF ADMISSION: 01/25/2020 DATE OF DISCHARGE: 01/28/2020 DISCHARGED BY: Dr. Johnson REASON FOR ADMISSION: 79 years old female with past medical history of COPD, hypertension, diabetes, presented to emergency department with shortness of breath. Patient reported worsening shortness of breath over the past week. She used albuterol inhaler only with a mild relief for the past several days. Earlier in the day prior to presentation to ED she was gasping for air. When the paramedics arrived , the patient was tripoding on the ground and had oxygen saturation of 90% on room air. Patient was placed on supplemental oxygen and immediately felt better. Patient denied fever and chills. Patient denied chest pain , palpitations, cough. No nausea ,vomiting, diarrhea, or abdominal pain. COVID-19 was negative. Laboratory work-up revealed leukocytosis, stable hemoglobin,hematocrit and platelet count. Stable electrolytes. Glucose 159. Troponin negative. EKG revealed sinus rhythm , no acute ischemic changes. Chest x-ray revealed ill-defined right lower lung patchy airspace opacity, representing infection or asymmetric edema. Patient subsequently admitted for further management. CONSULTANTS: software test analyst Dr. Flowers pulmonary Dr. Corrigan ID specialist Dr. Zhang psychiatrist Dr. Valentin [facility] COURSE: Patient admitted to telemetry floor. Echocardiogram demonstrated preserved ejection fraction of 60%. No evidence of left ventricular hypertrophy. Serial troponin were negative. EKG revealed no acute ischemic changes. He was ruled out for acute myocardial infarction. Blood pressure was managed as per software test analyst recommendation with Verapamil and Lasix. Volumes were closely monitored. Lower extremity edema was improving. Patient noted to have recurrent SVT. Apparently patient was supposed to have ablation by Dr. De La Cruz many years ago, but never follow-up on that. Patient had 2 episodes of sustained SVT and 2 more sustained SVT , which were captured on twelve-lead EKG along with a long WA and negative P waves in inferior leads , despite verapamil. Temperature Regulator recommended EPS and ablation. Supplemental oxygen provided and titrated to keep pulse oximetry above 92%. Patient started on the IV steroids with gradual tapering and empiric antibiotics. Pulmonary toilet with DuoNeb provided. Rapid COVID-19 was negative. Blood culture revealed Enterobacter Antibiotic regimen provided as per ID recommendation. Leukocytosis resolved. No fevers. CT scan of the chest, abdomen and pelvis revealed evidence of COPD with panlobular, predominantly upper lobe emphysema. Minimal pulmonary parenchymal atelectasis and /or scaring. Borderline cardiomegaly. Distended bladder with a bladder diverticula. Fatty liver. Colonic diverticulosis. Psychiatric medication regimen was optimized as per psychiatrist. Cognitive behavioral therapy provided. Transfer was arranged to [facility]. Patient was stable for transfer via [facility] to [facility] for EPS and ablation. FINAL DIAGNOSES: Right lung pneumonia/community-acquired pneumonia COPD exacerbation Gram-positive Enterobacter sepsis Hypertension Lower extremity edema Hypoxemia COPD Recurrent SVT Obesity Anxiety Diabetes Generalized anxiety disorder DISCHARGE MEDICATIONS: List of medication was sent to accepting facility DISCHARGE INSTRUCTIONS: Patient was transferred to [facility] via [facility] ambulance for EPS and ablation I have been assigned to dictate discharge summary for this account. I was not involved in the patient's management. Fiorella Olivas NP Jan 30, 2020 13:54
== END 2020-01-28 22:35 | disposition short-term general hospital (02) | DRG 871 ==
LOC: EDBD 05:00 → EMR 05:15 → EDBEDREQ 09:37 → 2E 09:48
DX: A41.89 Other specified sepsis (principal); J18.9 Pneumonia, unspecified organism; J44.0 Chronic obstructive pulmonary disease with (acute) lower respiratory infection; J44.1 Chronic obstructive pulmonary disease with (acute) exacerbation; I47.1 Supraventricular tachycardia; E66.9 Obesity, unspecified; Z68.27 Body mass index [BMI] 27.0-27.9, adult; R06.03 Acute respiratory distress; R09.02 Hypoxemia; Z88.0 Allergy status to penicillin; F41.1 Generalized anxiety disorder; I10 Essential (primary) hypertension; E11.9 Type 2 diabetes mellitus without complications
CPT/HCPCS: 36415; 71045; 71260; 74177; 80048; 80053; 81003; 83880; 84439; 84443; 84484; 85007; 85025; 87040; 87181; 93005; 93306; 94640; 96365; 96375; 99291; J2405; J7030; J7620; U0002